=== PATIENT | male | born 1955 | race Caucasian/White ===

== ENCOUNTER 2022-02-08 19:35 | Emergency (ER) | payer MEDICARE, SELFPAY ==
[2022-02-08] VITALS (19 sets, daily range): BP systolic 161–177; BP diastolic 88–112; PULSE 76–116; RESP 15–32; TEMP 37.6; O2SAT 91–98
--- NOTE | ~2022-02-08 | XR_ITS ---
EXAMINATION: XR chest 2V Exam Date/Time: 02/08/2022 20:05 CDT HISTORY: AMS Comparison: None available. RESULT: Lines, tubes, and devices: None. Lungs and pleura: Clear. Cardiomediastinal silhouette: Mild aortic ectasia. Calcified hilar lymph nodes. Other: No acute osseous or upper abdominal finding. IMPRESSION: No acute cardiopulmonary process. Reviewed, dictated and finalized at location [facility].
--- NOTE | 2022-02-08 20:02 | ED.GENADULT ---
HPI - General Adult General Chief complaint: Altered Mental Status Stated complaint: altered LOC Time Seen by Provider: 02/08/22 19:41 History of Present Illness HPI narrative: Patient is a 67-year-old female who presents ER with fatigue. Worsening over the last day. Intermittent confusion when talking to daughter on the phone. Patient's called daughter to report that patient was sleeping more than typical. Patient oriented x3. Denies runny nose or sore throat or productive cough. Denies fevers chills or sweats. No known sick contacts. No urinary frequency urgency or dysuria. No aggravating or alleviating factors. Patient has not been taking home meds. Related Data Allergies Allergy/AdvReac Type Severity Reaction Status Date / Time No Known Allergies Allergy Verified 02/08/22 19:55 Review of Systems Review of Systems: All systems reviewed & are unremarkable except as noted in HPI and below Constitutional: Constitutional: Denies chills, Reports fatigue and Denies fever(s) ENT: Denies nasal congestion and Denies sore throat Cardiovascular: Cardiovascular: Denies chest pain, Denies rapid heart rate and Denies radiating jaw, neck or arm pain Respiratory: Respiratory: Denies cough and Denies dyspnea Gastrointestinal: Gastrointestinal: Denies abdominal pain, Denies nausea and Denies vomiting Genitourinary: Genitourinary: Denies dysuria, Denies testicular pain and Denies urinary frequency Neurologic: Denies syncope and Denies headache(s) PMFSH Past Medical History Medical History (Updated 02/08/22 @ 22:30 by Nik Mckeon MD) Diabetes Hypertension Surgical History Surgical History (Updated 02/08/22 @ 22:30 by Nik Mckeon MD) No pertinent past surgical history Social History Social History (Updated 02/08/22 @ 22:30 by Nik Mckeon MD) Smoking status: Never smoker Exam Narrative: GENERAL: Fatigued-appearing, well-nourished, and in no acute distress. HEAD: Normocephalic, atraumatic. EYES: PERRL and EOMI. ENT: Mucous membranes moist. CHEST: Clear to auscultation. No respiratory distress. HEART: Tachycardic and regular. Normal peripheral pulses. ABDOMEN: Soft, nontender, nondistended. EXTREMITIES: Normal range of motion. No edema. SKIN: Warm, dry, no rash. NEURO: Alert and oriented x3. PSYCH: Normal mood and affect. Course Course Emergency Course: Patient feels improved with IV fluids and is more awake per patient and family. We will give patient some IV antibiotics and discharged home after discussing options of home versus admission with patient and family. Patient is ambulatory and oriented x3 and should be able to be trialed with outpatient treatment. Discussed return precautions. Vital Signs Vital signs: Vital Signs Temperature 99.6 F 02/08/22 19:37 Pulse Rate 116 H 02/08/22 19:37 Respiratory Rate 18 02/08/22 19:37 Pulse Oximetry 94 02/08/22 19:37 Oxygen Delivery Room Air 02/08/22 19:37 Temperature 99.6 F 02/08/22 19:37 Pulse Rate 98 02/08/22 22:01 Respiratory Rate 21 H 02/08/22 22:01 Blood Pressure 169/97 H 02/08/22 22:01 Pulse Oximetry 96 02/08/22 22:01 Oxygen Delivery Room Air 02/08/22 19:37 Medical Decision Making Vital Signs Vital Signs: Vital Signs Temperature 99.6 F 02/08/22 19:37 Pulse Rate 116 H 02/08/22 19:37 Respiratory Rate 18 02/08/22 19:37 Pulse Oximetry 94 02/08/22 19:37 Oxygen Delivery Room Air 02/08/22 19:37 Temperature 99.6 F 02/08/22 19:37 Pulse Rate 98 02/08/22 22:01 Respiratory Rate 21 H 02/08/22 22:01 Blood Pressure 169/97 H 02/08/22 22:01 Pulse Oximetry 96 02/08/22 22:01 Oxygen Delivery Room Air 02/08/22 19:37 Lab Data Result diagrams: 02/08/22 20:04 02/08/22 20:04 Labs: Lab Results 02/08/22 02/08/22 02/08/22 Range/Units 20:04 20:04 20:04 WBC 3.7 L (4.5-10.0) K/mm3 RBC 4.67 (4.6-6.20) M/mm3
[2022-02-08 20:12] LABS: Basophils Percent Auto 0.3 % (0.2-1.2); Eosinophils Percent Auto 0.3 % (0-4.4); Hematocrit 38.2 % (42.0-52.0); Hemoglobin 12.9 g/dL (14.0-18.0); Immature Granulocyte Absolute 0.01 K/mm3 (0.00-0.031); Immature Granulocyte Percent A 0.3 % (0-0.5); Lymphocytes Absolute Auto 0.53 K/mm3 (0.9-3.2); Lymphocytes Percent Auto 14.2 % (18.3-44.2); Mean Corpuscular HGB Conc 33.8 g/dl (32-36); Mean Corpuscular Hemoglobin 27.6 pg (26-34); Mean Corpuscular Volume 81.8 fl (80-100); Mean Platelet Volume 9.6 fl (7.4-10.4); Monocytes Absolute Auto 0.3 K/mm3 (0.1-0.6); Monocytes Percent Auto 8.9 % (2.6-8.5); Neutrophils Absolute Auto 2.8 K/mm3 (1.3-6.7); Platelet Count Result 120 k/mm3 (150-375); Red Blood Count 4.67 M/mm3 (4.6-6.20); Red Cell Distribution Width 14.4 % (11.5-14.5); White Blood Count 3.7 K/mm3 (4.5-10.0)
[2022-02-08] MEDS: SODIUM CHLORIDE 0.9% IV 1,000 ML 999 ML IV CONT (20:19)
[2022-02-08 20:22] LABS: Alanine Aminotransferase 19 U/L (6-50); Albumin Level 4.3 g/dL (3.5-5.1); Alkaline Phosphatase 74 U/L (38-126); Anion Gap 12 mmol/L (8-16); Aspartate Amino Transferase 20 U/L (17-59); Bilirubin,Total 0.9 mg/dL (0.2-1.3); Blood Urea Nitrogen 11 mg/dL (9-20); Calcium 9.5 mg/dL (8.4-10.2); Carbon Dioxide 26 mmol/L (22-30); Chloride 97 mmol/L (98-107); Estimated Glomerular Filt Rate > 60; Glucose 177 mg/dL (65-110); Lactic Acid Reflex 1.4 mmol/L (0.7-2.0); Potassium 3.7 mmol/L (3.4-5.0); Sodium 135 mmol/L (137-145)
[2022-02-08 20:37] LABS: Appearance Urine Clear (Clear); Bilirubin Urine Negative (Negative); Blood Urine 1+ (Negative); Color Urine Yellow (Yellow); Glucose Urine UA Negative (Negative); Ketones Urine Negative (Negative); Leukocyte Esterase Ur 1+ LEU/UL (Negative); Nitrate Urine Positive (Negative); Protein Urine 2+ mg/dL (Negative); Specific Grav Ur 1.025 (1.001-1.035)
[2022-02-08] MEDS: Please add drug allergy info to patient profile. 1 EACH XX (20:40)
[2022-02-08 20:45] LABS: Bacteria Urine 3+ /hpf; Mucus Urine Rare /lpf; Squamous Epithelial Cell Urine Few /hpf (Few); WBC Urine 21-30 /hpf
[2022-02-08 20:48] LABS: Add Urine Microscopic? YES
[2022-02-08 21:07] LABS: SARS-CoV-2 RNA PCR Negative
== END 2022-02-08 23:25 | disposition home or self-care (01) ==
PROVIDERS: Emergency Provider Emergency Medicine
DX: N39.0 Urinary tract infection, site not specified (principal); E11.9 Type 2 diabetes mellitus without complications; I10 Essential (primary) hypertension; Z20.822 Contact with and (suspected) exposure to COVID-19
CPT/HCPCS: 36415; 71046; 80053; 81001; 83605; 85025; 87077; 87086; 87186; 96361; 96365; 99284; C9803; J0696; J7030; U0003; U0005

== ENCOUNTER 2022-11-24 16:20 | Inpatient (IN) | payer MEDICARE, SELFPAY ==
[2022-11-24] VITALS (8 sets, daily range): BP systolic 94–108; BP diastolic 52–68; PULSE 78–120; RESP 17–25; TEMP 36.4–36.9; O2SAT 93–99; BMI 27.1
--- NOTE | ~2022-11-24 | US_ITS ---
US abdomen limited DATE: 11/25/2022 07:54 INDICATION: Abnormal liver function tests TECHNIQUE: Real-time imaging and Doppler analysis of liver, pancreas, gallbladder areas COMPARISON: None FINDINGS: No hepatic or pancreatic space-occupying mass lesion is detected. Normal hepatopedal portal venous flow direction. There are dependent filling defects of the gallbladder with some shadowing, consistent with cholelith iasis. There is gallbladder wall thickening, measuring approximately 3.5 mm thickness. Negative sonog raphic Nance's sign. The common bile duct measures approximately 4 mm, within normal limits. IMPRESSION: Cholelithiasis Thickening of the gallbladder wall, which may be due to acute or chronic cholecystitis Reviewed, dictated and finalized at [facility]. Reviewed, dictated and finalized at location A. IMPRESSION: Cholelithiasis Thickening of the gallbladder wall, which may be due to acute or chronic cholec ystitis
--- NOTE | ~2022-11-24 | CT_ITS ---
EXAMINATION: CT brain wo con DATE: 11/24/2022 18:25 INDICATION: AMS . TECHNIQUE: Computed tomography (CT) of the head was performed without intravenous contrast. The mA wa s adjusted according to patient size. Iterative reconstruction technique was employed. The dose-lengt h product was 605.33 mGy-cm. COMPARISON: None. FINDINGS: No acute intracranial hemorrhage or extra-axial fluid collection. No hydrocephalus, mass, or herniation. 11 mm hypodensity in the left external capsule, No acute large vessel ischemic infarct. Unremarkable dural venous sinus attenuation. No acute osseous abnormality. The aerated spaces are clear. Mild atrophy and chronic white matter change. Atherosclerotic intracranial calcification. Old left ba teresita ganglia lacunar infarct. Old focal right frontal lobe periventricular infarct. IMPRESSION: 11 mm circumscribed hypodensity in the left external capsule, suspicious for a focal acute or subacut e infarct. Consider MR of the brain for further evaluation. Reviewed, dictated and finalized at location [facility]. IMPRESSION: 11 mm circumscribed hypodensity in the left external capsule, suspicious for a focal acute or subacute infarct. Consider MR of the brain for further evaluatio n.
--- NOTE | ~2022-11-24 | MR_ITS ---
MRI of the brain Clinical History: Abnormal head CT Technique: Axial and sagittal T1-weighted images were acquired. These were followed by axial T2-weigh heaven, diffusion weighted, gradient, and FLAIR images. COMPARISON: Head CT dated 11/24/2022 Findings: There is no acute infarct, intracranial hemorrhage or mass lesion. There are moderate chron ic microvascular ischemic changes in the periventricular white matter bilaterally. Ventricles and subarachnoid spaces are minimally dilated. Orbits are unremarkable. There is bilateral maxillary sinus disease. Remaining paranasal sinuses and mastoid air cells are clear. Major intracra nial flow voids are intact. Sagittal midline structures are intact. IMPRESSION: No acute infarct, intracranial hemorrhage, or mass lesion. Moderate chronic microvascular ischemic changes. Bilateral maxillary sinus disease. Reviewed, dictated and finalized at location .
--- NOTE | ~2022-11-24 | XR_ITS ---
EXAMINATION: XR chest 2V Exam Date/Time: 11/24/2022 18:00 CDT HISTORY: AMS, fever Comparison: 02/08/2022. RESULT: Lines, tubes, and devices: None. Lungs and pleura: Clear. Cardiomediastinal silhouette: Stable. Other: No acute osseous or upper abdominal finding. IMPRESSION: No acute cardiopulmonary process. Reviewed, dictated and finalized at location K.
--- NOTE | 2022-11-24 17:27 | ECG_ITS ---
Measurements Intervals [place] Rate: 108 P: 5 MT: 165 QRS: -47 QRSD: 156 T: 87 QT: 379 QTc: 508 Interpretive Statements SINUS TACHYCARDIA MARKED LEFT AXIS DEVIATION [QRS AXIS < -30] LEFT BUNDLE BRANCH BLOCK [120+ ms QRS DURATION, 80+ ms Q/S IN V1/V2, 85+ ms R IN I/aVL/V5/V6] ABNORMAL ECG NO PREVIOUS ECG AVAILABLE FOR COMPARISON Electronically Signed On 11-25-2022 9:13:49 CDT by [place] M.D.
[2022-11-24 18:05] LABS: Glucose Point of Care 147 mg/dl (65-105)
[2022-11-24 18:41] LABS: Basophils Percent Auto 0.6 % (0.2-1.2); Eosinophils Percent Auto 0.5 % (0-4.4); Hematocrit 39.2 % (42.0-52.0); Hemoglobin 12.8 g/dL (14.0-18.0); Immature Granulocyte Absolute 0.01 K/mm3 (0.00-0.031); Immature Granulocyte Percent A 0.2 % (0-0.5); Immature Platelet Fraction Pct 3.7 % (0.9-11.2); Lymphocytes Absolute Auto 0.45 K/mm3 (0.9-3.2); Lymphocytes Percent Auto 6.9 % (18.3-44.2); Mean Corpuscular HGB Conc 32.7 g/dl (32-36); Mean Corpuscular Volume 85.8 fl (80-100); Mean Platelet Volume 10.3 fl (7.4-10.4); Monocytes Absolute Auto 0.5 K/mm3 (0.1-0.6); Monocytes Percent Auto 7.2 % (2.6-8.5); Neutrophils Absolute Auto 5.5 K/mm3 (1.3-6.7); Neutrophils Percent Auto 84.6 % (45.5-73.1); Platelet Count Result 144 k/mm3 (150-375); Red Blood Count 4.57 M/mm3 (4.6-6.20); Red Cell Distribution Width 14.9 % (11.5-14.5); White Blood Count 6.5 K/mm3 (4.5-10.0)
--- NOTE | 2022-11-24 18:45 | ED.AMS ---
HPI - Altered Mental Status General Chief Complaint: Altered Mental Status Stated Complaint: my family says i'm not thinking clearly Time Seen by Provider: 11/24/22 17:27 History of Present Illness HPI narrative: Patient had a slight cough yesterday, night, and today seems more confused, noticed she had a small fever and gave her a Tylenol. She continues to not be making much sense. Denies any pain anywhere, or any symptoms. She has had similar issues like this before when she was found to have a UTI. Related Data Allergies Allergy/AdvReac Type Severity Reaction Status Date / Time No Known Allergies Allergy Verified 11/24/22 17:33 Review of Systems Review of Systems: CONST: Fever HEENT: No sore throat C/V: No chest pain RESP: Slight cough GI: No abdominal pain, nausea or vomiting : No dysuria. M/S: No joint pain. SKIN: No rash. NEURO: [No headache or focal numbness or weakness] PSYCH: Slight confusion PMFSH Past Medical History Medical History Diabetes Hypertension Surgical History Surgical History No pertinent past surgical history Social History Social History Smoking status: Never smoker Exam Narrative: EXAMINATION OF ORGAN SYSTEMS/BODY AREAS: Constitutional: Vital signs per nursing GENERAL:[No acute distress, non-toxic appearing.] HEAD: Normal with no signs of head trauma. EYES: EOMI, conjunctiva normal ENT: Hearing grossly intact LUNGS: Nonlabored breathing. HEART: [Regular rate and rhythm] ABD: [Soft], [nontender to palpation] EXT: Normal range of motion SKIN: [No rashes or lesions.] NEURO: [Alert, slightly slow of speech. No gross focal sensory or strength deficits.] PSYCH: Normal affect Course Vital Signs Vital signs: Vital Signs Temperature 98.3 F 11/24/22 16:23 Pulse Rate 120 H 11/24/22 16:23 Respiratory Rate 20 11/24/22 16:23 Blood Pressure 106/52 L 11/24/22 16:23 Pulse Oximetry 95 11/24/22 16:23 Oxygen Delivery Room Air 11/24/22 16:23 Temperature 98.3 F 11/24/22 16:23 Pulse Rate 109 H 11/24/22 17:32 Respiratory Rate 25 H 11/24/22 17:31 Blood Pressure 103/54 L 11/24/22 17:31 Pulse Oximetry 93 11/24/22 17:31 Oxygen Delivery Room Air 11/24/22 16:23 MDM - Altered Mental Status MDM Narrative Medical decision making narrative: 67 year-old patient presenting with altered mental status, as of this happen she had a UTI. also noticed she had a fever, he thinks she had a slight cough yesterday also.. Urinalysis is obtained and positive for signs of infection. Urine culture sent. Patient started on ceftriaxone, I did not start the 30 cc/kg of fluids for sepsis due to her history of CHF, but I will carefully given IV fluids to ensure she does not become fluid overloaded, I do feel she is still overall volume depleted given her chest x-ray is clear and her blood pressures borderline with mild tachycardia. On reevaluation, vital signs have somewhat stabilized, she is resting comfortably, I have explained the plan and findings to her that I would prefer her to be admitted until she is better, they are agreeable with this plan. Case discussed with hospitalist who accepts the patient. total crit care time 32 min Lab Data 11/24/22 18:04 11/24/22 18:03 Labs: Lab Results 11/24/22 11/24/22 11/24/22 Range/Units 18:02 18:03 18:04 WBC 6.5 (4.5-10.0) K/mm3 RBC 4.57 L (4.6-6.20) M/mm3 Hgb 12.8 L (14.0-18.0) g/dL Hct 39.2 L (42.0-52.0) % MCV 85.8 (80-100) fl MCH 28.0 (26-34) pg MCHC 32.7 (32-36) g/dl RDW 14.9 H (11.5-14.5) % Plt Count 144 L (150-375) k/mm3 MPV 10.3 (7.4-10.4) fl Immature Gran % (Auto) 0.2 (0-0.5) % Neut % (Auto) 84.6 H (45.5-73.1) % Lymph % (Auto)
[2022-11-24 18:50] LABS: Alanine Aminotransferase 466 U/L (6-50); Albumin Level 4.3 g/dL (3.5-5.1); Alkaline Phosphatase 244 U/L (38-126); Anion Gap 7 mmol/L (8-16); Aspartate Amino Transferase 521 U/L (17-59); Blood Urea Nitrogen 25 mg/dL (9-20); Carbon Dioxide 31 mmol/L (22-30); Chloride 100 mmol/L (98-107); Estimated CRCL calculation 67 ml/min; Estimated Glomerular Filt Rate > 60; Glucose 143 mg/dL (65-110); Potassium 3.9 mmol/L (3.4-5.0); Sodium 138 mmol/L (137-145)
[2022-11-24 18:52] LABS: Acetaminophen < 10 ug/mL (10-30); Ethanol < 10 mg/dL (<10); Salicylate < 1.0 mg/dL (2-20)
[2022-11-24 19:09] LABS: Troponin I 0.016 ng/mL (0.000-0.034)
[2022-11-24 19:12] LABS: Appearance Urine Cloudy (Clear); Bacteria Urine 4+ /hpf; Bilirubin Urine 2+ (Negative); Blood Urine Negative (Negative); Color Urine Dark Yellow (Yellow); Glucose Urine UA 3+ mg/dL (Negative); Hyaline Casts Urine Present /lpf; Ketones Urine 1+ mg/dL (Negative); Leukocyte Esterase Ur Trace LEU/UL (Negative); Nitrate Urine Positive (Negative); Non Pathogenic Casts 0-2; Protein Urine Trace mg/dL (Negative); Squamous Epithelial Cell Urine Few /hpf (Few); WBC Urine 21-50 /hpf; pH Urine 5.5 (5.0-9.0)
[2022-11-24 19:13] LABS: Add Urine Microscopic? YES
[2022-11-24] MEDS: LACTATED RINGERS 500 ML 999 ML IV CONT (19:38)
--- NOTE | 2022-11-24 19:47 | PM.IMHP ---
H&P: HPI History of Present Illness Date/Time: 11/24/22 19:47 Chief Complaint: Altered mental status Narrative: This is a 67-year-old female with past medical history significant for type diabetes mellitus, congestive heart failure, thyroid mass. Patient was brought to the emergency room due to altered mental status, confusion, lethargy, poor per orally intake, chills, rigors, for the last 2 days or so. Most of the history has been obtained from who is at bedside. Preliminary workup was significant for urinalysis with numerous WBCs present. EXAMINATION:? XR chest 2V Exam Date/Time:? 11/24/2022 18:00 CDT HISTORY: AMS, fever ? Comparison:? 02/08/2022. RESULT: Lines, tubes, and devices:? None. Lungs and pleura:? Clear. Cardiomediastinal silhouette:? Stable. Other:? No acute osseous or upper abdominal finding. ? IMPRESSION: No acute cardiopulmonary process. EXAMINATION: CT brain wo con DATE: 11/24/2022 18:25 INDICATION: AMS . TECHNIQUE: Computed tomography (CT) of the head was performed without intravenous contrast. The mA was adjusted according to patient size. Iterative reconstruction technique was employed. The dose-length product was 605.33 mGy-cm. COMPARISON: None. FINDINGS: No acute intracranial hemorrhage or extra-axial fluid collection. No hydrocephalus, mass, or herniation. 11 mm hypodensity in the left external capsule, No acute large vessel ischemic infarct. Unremarkable dural venous sinus attenuation. No acute osseous abnormality. The? aerated spaces are clear. Mild atrophy and chronic white matter change. Atherosclerotic intracranial calcification. Old left basal ganglia lacunar infarct. Old focal right frontal lobe periventricular infarct. IMPRESSION:? 11 mm circumscribed hypodensity in the left external capsule, suspicious for a focal acute or subacute infarct. Consider MR of the brain for further evaluation. [facility] Past Medical History Medical History Diabetes Hypertension Surgical History Surgical History No pertinent past surgical history Social History Social History Smoking status: Never smoker Alcohol intake: never Substance use: never Substance use type: does not use Lack of Transportation: No Lack of Food: Never True Current Housing: I Have Housing Concerned About Future Housing: No Difficulty Paying Gas/Electric Bills: No Difficulty Paying for Meds: No Currently Unemployed: No Education: Bachelor's Degree Difficulty w/ Childcare or Family Care: No Spiritual care concerns: No Meds Home Medications and Allergies Home Medications Medication Instructions Recorded Confirmed Type empagliflozin 10 mg tablet 10 mg PO DAILY 11/24/22 11/24/22 History (Jardiance) furosemide 20 mg tablet 20 mg PO DAILY 11/24/22 11/24/22 History metoprolol succinate 25 mg 25 mg PO DAILY 11/24/22 11/24/22 History tablet,extended release 24 hr sacubitril 24 mg-valsartan 26 mg 1 tablet PO BID 11/24/22 11/24/22 History tablet (Entresto) spironolactone 50 mg tablet 50 mg PO DAILY 11/24/22 11/24/22 History Allergies Allergy/AdvReac Type Severity Reaction Status Date / Time No Known Allergies Allergy Verified 11/24/22 22:09 Vital Signs Vital Signs - 24 hr 11/24/22 16:23 11/24/22 17:31 11/24/22 17:32 Temperature 98.3 F Pulse Rate 120 H 113 H 109 H Respiratory Rate 20 25 H Blood Pressure 106/52 L 103/54 L Pulse Oximetry 95 93 Oxygen Delivery Room Air 11/24/22 19:22 11/24/22 19:23 Temperature 97.8 F Pulse Rate 102 H 103 H Respiratory Rate 22 H Blood Pressure 94/58 L Pulse Oximetry 94 Oxygen Delivery H&P: Results Labs Labs: Short CBC 11/24/22 Range/Units 18:04 WBC 6.5 (4.5-10.0) K/mm3 Hgb 12.8 L (14.0-18.0) g/dL Hct 39.2 L (42
[2022-11-24] MEDS: PIPERACILLN/TAZ 3.375GM/NS50ML 3.375 GM/50 ML BAG IVPB (20:31)
--- NOTE | 2022-11-24 20:43 | PC.NURSE ---
Called [facility] for report, per their admin secretary the nurse will call back.
--- NOTE | 2022-11-24 21:13 | PC.NURSE ---
Patient received 1,000mL of LR. Per Dr. Allen d/c the rest of the LR ordered.
--- NOTE | 2022-11-24 21:40 | ADMGEN ---
Addendum entered by Talia Juarze RN 11/24/22 21:42: PT ARRIVED APPROXIMATELY @2130 Original Note: This patient, Miryam Pablo, was admitted to 2 Medical Room 256-01. Patient/family oriented to hospital policies and general routines including ID bracelet, bed and alarms, visiting hours, pain management, procedures, bathroom and other care routines, personal items, smoking policy, room service/diet, and visiting hours. Information on how to activate the Rapid Response Team has been discussed. Patient/Family are encouraged to report perceived risks to care and to ask questions if they do not understand what they are told or what they should do.
[2022-11-25] MEDS: PIPERACILLN/TAZ 3.375GM/NS50ML 3.375 GM/50 ML BAG IVPB ×2 (04:06→08:26)
[2022-11-25 04:21] VITALS: BP 112/53; PULSE 88; RESP 18; TEMP 36.6; O2SAT 93
[2022-11-25 07:58] VITALS: RESP 18; O2SAT 94
[2022-11-25 08:22] LABS: Glucose Point of Care 98 mg/dl (65-105)
[2022-11-25] MEDS: ENOXAPARIN 40 MG/0.4 ML SYRINGE SUB-Q (08:26)
--- NOTE | 2022-11-25 11:06 | PM.IMPN ---
Progress Note: A&P Assessment and Plan (1) Altered mental status: Code(s): R41.82 - Altered mental status, unspecified Status: Acute Assessment and Plan: Likely secondary to sepsis CT of the head reviewed (2) Sepsis: Code(s): A41.9 - Sepsis, unspecified organism Status: Acute Assessment and Plan: Source is urine Encephalopathy, altered mental status, delirium. Abnormal liver enzymes (3) UTI (urinary tract infection): Code(s): N39.0 - Urinary tract infection, site not specified Status: Acute Assessment and Plan: Currently on Zosyn Cultures in progress (4) Thyroid mass: Code(s): E07.9 - Disorder of thyroid, unspecified Status: Acute Assessment and Plan: Being followed up in the outpatient setting for this (5) Abnormal LFTs: Code(s): R79.89 - Other specified abnormal findings of blood chemistry Status: Acute Assessment and Plan: Likely secondary to sepsis Right upper quadrant ultrasound in a.m. Continue to trend Continue to monitor Plan This a 67-year-old presented with effusion mild fever got lost. Similar issues in past related to UTI. Vital was stable. UA positive. Ceftriaxone given in the ER. Was noted to have mild thrombocytopenia and elevated LFTs AST 521 ALT 466 an Julio C phosphorus 244 bilirubin elevated at 4. Troponin negative electrolytes okay salicylate it alcohol and acetaminophen is negative. CT head with 11 mm circumscribed hypodensity in the left external capsule suspicious for a focal acute or subacute infarct. Chest x-ray with no acute cardiopulmonary process. Abdominal ultrasound showed cholelithiasis along thickening of the gallbladder wall which may be due to acute or chronic cholecystitis. She does not have any pain or tenderness or any GI symptoms. Will continue to trend LFTs. Will have General surgery evaluate. Check lipase level. May need further evaluation with HIDA scan. She is turning out to be bacteremic with Gram-negative bacilli. Possible source gallbladder versus UTI. Patient was switched to Zosyn. She has a history of ESBL E coli. Will change antibiotics to meropenem. Will start clear liquid diet and advanced as tolerated for now. DVT prophylaxis Lovenox. History of congestive heart failure well compensated on Entresto metoprolol Lasix and spironolactone. Also on empagliflozin. Cold empagliflozin and diuretics Subjective Date/time seen: 11/25/22 11:06 Interval history: Feeling better today. Denies any abdominal pain nausea vomiting. Was lost yesterday on the way back. Has been feeling tired over past few days. Antibiotic with Zosyn Review of Systems Review of Systems: All systems reviewed & are unremarkable except as noted in HPI and below Exam Narrative: GENERAL: The patient is well developed, not in acute distress HEENT: Nonicteric sclerae, PERRLA, EOMI. Oropharynx clear. Moist mucous membranes. Conjunctivae appear well perfused. CHEST: Chest wall is nontender. HEART: Regular rate and rhythm without murmur, rubs, or gallops LUNGS: Clear to auscultation bilaterally. no respiratory distress ABDOMEN: Soft, positive bowel sounds, non-tender, no organomegaly. SKIN: No rash, no excessive bruising, petechiae, or purpura. NEUROLOGIC: Cranial nerves II-XII intact, alert and oriented x 3, no gross motor deficits EXTREMITIES: no edema, cyanosis or clubbing Objective Data Vital Signs Vital Signs: Vital Signs - 24 hr 11/24/22 16:23 11/24/22 17:31 11/24/22 17:32 Temperature 98.3 F Pulse Rate 120 H 113 H 109 H Respiratory Rate 20 25 H Blood Pressure 106/52 L 103/54 L Pulse Oximetry 95 93 Oxygen Delivery Room Air 11/24/22 19:22 11/24/22 19:23 11/24/22 21:08 Temperature 97.8 F 97.6 F Pulse Rate 102 H 103 H 78 Respiratory Rate 22 H 17 Blood Pressure 94/58 L 106/68 Pulse Oximetry 94 99 Oxygen Delivery 11/24/22 21:43 11/24/22 22:00 11/25/22 04:21
[2022-11-25 11:41] LABS: Glucose Point of Care 75 mg/dl (65-105)
[2022-11-25 13:15] LABS: Basophils Percent Auto 0.3 % (0.2-1.2); Hematocrit 35.8 % (42.0-52.0); Hemoglobin 11.4 g/dL (14.0-18.0); Immature Granulocyte Absolute 0.01 K/mm3 (0.00-0.031); Immature Granulocyte Percent A 0.3 % (0-0.5); Immature Platelet Fraction Pct 4.2 % (0.9-11.2); Lymphocytes Absolute Auto 0.29 K/mm3 (0.9-3.2); Lymphocytes Percent Auto 10.1 % (18.3-44.2); Mean Corpuscular HGB Conc 31.8 g/dl (32-36); Mean Corpuscular Hemoglobin 28.3 pg (26-34); Mean Corpuscular Volume 88.8 fl (80-100); Mean Platelet Volume 10.4 fl (7.4-10.4); Monocytes Absolute Auto 0.3 K/mm3 (0.1-0.6); Monocytes Percent Auto 8.7 % (2.6-8.5); Neutrophils Absolute Auto 2.3 K/mm3 (1.3-6.7); Neutrophils Percent Auto 79.6 % (45.5-73.1); Platelet Count Result 107 k/mm3 (150-375); Red Blood Count 4.03 M/mm3 (4.6-6.20); Red Cell Distribution Width 14.9 % (11.5-14.5); White Blood Count 2.9 K/mm3 (4.5-10.0)
[2022-11-25 13:22] LABS: INR 1.2; Prothrombin Time 15.4 Seconds (11.1-14.7)
[2022-11-25] MEDS: MEROPENEM 1 GM in SODIUM CHLORIDE 0.9% IV 100 ML 200 ML IVPB ×2 (13:34→21:02)
[2022-11-25 13:35] LABS: Lipase 436 U/L (23-300)
[2022-11-25 13:39] LABS: Alanine Aminotransferase 275 U/L (6-50); Albumin Level 3.6 g/dL (3.5-5.1); Alkaline Phosphatase 181 U/L (38-126); Anion Gap 3 mmol/L (8-16); Aspartate Amino Transferase 165 U/L (17-59); Bilirubin,Total 2.9 mg/dL (0.2-1.3); Blood Urea Nitrogen 21 mg/dL (9-20); Calcium 8.7 mg/dL (8.4-10.2); Carbon Dioxide 31 mmol/L (22-30); Chloride 103 mmol/L (98-107); Estimated CRCL calculation 66 ml/min; Estimated Glomerular Filt Rate > 60; Glucose 96 mg/dL (65-110); Sodium 137 mmol/L (137-145)
[2022-11-25 14:06] VITALS: BP 108/53; PULSE 82; RESP 18; TEMP 36.4; O2SAT 98
[2022-11-25 16:47] LABS: Glucose Point of Care 100 mg/dl (65-105)
--- NOTE | 2022-11-25 17:20 | PM.CNGS ---
Assessment and Plan Assessment and plan (1) Cholecystitis with cholelithiasis: Code(s): K80.10 - Calculus of gallbladder with chronic cholecystitis without obstruction Status: Acute Assessment and Plan: exam completely benign at this point, cont treatment c abx, d/w pt and family and she will likely need interval cholecystectomy as outpt (2) UTI (urinary tract infection): Code(s): N39.0 - Urinary tract infection, site not specified Status: Acute Assessment and Plan: cont current abx course, pt improving to baseline (3) Altered mental status: Code(s): R41.82 - Altered mental status, unspecified Status: Acute Assessment and Plan: resolved History of Present Illness Consult details Consult date: 11/25/22 Reason for consult: gallstones Requesting physician: Kim Louis MD Narrative: The patient is a 67-year-old female presenting to the emergency department with altered mental status. Workup in the emergency department was consistent with likely urosepsis. The patient was also noted to have elevated liver enzymes and bilirubin. Subsequent imaging is significant for acute versus chronic cholecystitis, cholelithiasis. Of note, the patient denies any abdominal pain. She reports that she has had some mild reflux in the past, however denies any symptoms of gallbladder disease. Since admission, the patient has dramatically improved. Review of Systems Constitutional: Constitutional: Reports as per HPI, Denies anorexia, Denies chills, Denies fatigue, Denies fever(s), Denies increased appetite, Reports lethargy, Reports malaise, Reports poor appetite, Reports weakness, Denies weight gain and Denies weight loss Eyes: Eyes: Reports no additional eye complaints ENT: Reports system reviewed and no additional complaints, except as documented Cardiovascular: Cardiovascular: Reports no additional cardiovascular complaints Respiratory: Respiratory: Reports no additional respiratory complaints Gastrointestinal: Gastrointestinal: Reports no additional gastrointestinal complaints, Denies abdominal pain, Denies bloating, Denies nausea and Denies vomiting Genitourinary: Genitourinary: Reports no additional male genitourinary complaints Musculoskeletal: Musculoskeletal: Reports no additional musculoskeletal complaints Integumentary/Breasts: Skin/Breast: Reports system reviewed and no additional complaints, except as docu Neurologic: Reports system reviewed and no additional complaints, except as documented Psychiatric: Psychiatric: Reports no additional psychiatric complaints Endocrine: Endocrine: Reports no additional endocrine complaints Hematologic/Lymphatic: Hematologic/Lymphatic: Reports no additional hematologic/lymphatic complaints Allergic/Immunologic: Allergic/Immunologic: Reports no additional allergic/immunologic complaints [facility] Past Medical History Medical History Diabetes Hypertension Surgical History Surgical History No pertinent past surgical history Social History Social History Smoking status: Never smoker Alcohol intake: never Substance use: never Substance use type: does not use Lack of Transportation: No Lack of Food: Never True Current Housing: I Have Housing Concerned About Future Housing: No Difficulty Paying Gas/Electric Bills: No Difficulty Paying for Meds: No Currently Unemployed: No Education: Bachelor's Degree Difficulty w/ Childcare or Family Care: No Spiritual care concerns: No Comments FH - denies any biliary dz Meds Home Medications and Allergies Home Medications Medication Instructions Recorded Confirmed Type empagliflozin 10 mg tablet 10 mg PO DAILY 11/24/22 11/24/22 History (Jardiance) furosemide 20 mg tablet 20 mg PO DAILY
[2022-11-25 19:47] VITALS: BP 123/62; PULSE 80; RESP 20; TEMP 36.6; O2SAT 98
[2022-11-25 21:39] LABS: Glucose Point of Care 102 mg/dl (65-105)
[2022-11-26 04:01] VITALS: BP 100/56; PULSE 68; RESP 18; TEMP 36.1; O2SAT 95
[2022-11-26] MEDS: MEROPENEM 1 GM in SODIUM CHLORIDE 0.9% IV 100 ML 200 ML IVPB ×3 (05:00→21:19)
[2022-11-26 05:05] LABS: Basophils Percent Auto 0.4 % (0.2-1.2); Eosinophils Absolute Auto 0.1 K/mm3 (0-0.3); Eosinophils Percent Auto 2.7 % (0-4.4); Hematocrit 33.2 % (42.0-52.0); Hemoglobin 10.7 g/dL (14.0-18.0); Immature Granulocyte Absolute 0.01 K/mm3 (0.00-0.031); Immature Granulocyte Percent A 0.4 % (0-0.5); Lymphocytes Absolute Auto 0.32 K/mm3 (0.9-3.2); Lymphocytes Percent Auto 14.2 % (18.3-44.2); Mean Corpuscular HGB Conc 32.2 g/dl (32-36); Mean Corpuscular Hemoglobin 28.2 pg (26-34); Mean Corpuscular Volume 87.4 fl (80-100); Mean Platelet Volume 9.7 fl (7.4-10.4); Monocytes Absolute Auto 0.3 K/mm3 (0.1-0.6); Monocytes Percent Auto 13.8 % (2.6-8.5); Neutrophils Absolute Auto 1.5 K/mm3 (1.3-6.7); Neutrophils Percent Auto 68.5 % (45.5-73.1); Platelet Count Result 103 k/mm3 (150-375); Red Cell Distribution Width 14.8 % (11.5-14.5); White Blood Count 2.3 K/mm3 (4.5-10.0)
[2022-11-26 05:16] LABS: Alanine Aminotransferase 189 U/L (6-50); Albumin Level 3.3 g/dL (3.5-5.1); Alkaline Phosphatase 137 U/L (38-126); Anion Gap 3 mmol/L (8-16); Aspartate Amino Transferase 83 U/L (17-59); Bilirubin,Total 1.5 mg/dL (0.2-1.3); Blood Urea Nitrogen 17 mg/dL (9-20); Calcium 8.2 mg/dL (8.4-10.2); Carbon Dioxide 31 mmol/L (22-30); Chloride 100 mmol/L (98-107); Estimated CRCL calculation 73 ml/min; Estimated Glomerular Filt Rate > 60; Glucose 96 mg/dL (65-110); Potassium 3.8 mmol/L (3.4-5.0); Sodium 134 mmol/L (137-145)
--- NOTE | 2022-11-26 07:45 | PM.IMPN ---
Progress Note: A&P Assessment and Plan (1) Altered mental status: Code(s): R41.82 - Altered mental status, unspecified Status: Acute (2) Sepsis: Code(s): A41.9 - Sepsis, unspecified organism Status: Acute (3) UTI (urinary tract infection): Code(s): N39.0 - Urinary tract infection, site not specified Status: Acute (4) Thyroid mass: Code(s): E07.9 - Disorder of thyroid, unspecified Status: Acute (5) Abnormal LFTs: Code(s): R79.89 - Other specified abnormal findings of blood chemistry Status: Acute Plan This a 67-year-old presented with effusion mild fever got lost. Similar issues in past related to UTI. Vital was stable. UA positive. Ceftriaxone given in the ER. Was noted to have mild thrombocytopenia and elevated LFTs AST 521 ALT 466 an Julio C phosphorus 244 bilirubin elevated at 4. Troponin negative electrolytes okay salicylate it alcohol and acetaminophen is negative. CT head with 11 mm circumscribed hypodensity in the left external capsule suspicious for a focal acute or subacute infarct. Chest x-ray with no acute cardiopulmonary process. Abdominal ultrasound showed cholelithiasis along thickening of the gallbladder wall which may be due to acute or chronic cholecystitis. She does not have any pain or tenderness or any GI symptoms. Will continue to trend LFTs. Will have General surgery evaluate. Check lipase level. May need further evaluation with HIDA scan. She is turning out to be bacteremic with Gram-negative bacilli. Possible source gallbladder versus UTI. Patient was switched to Zosyn. She has a history of ESBL E coli. Will change antibiotics to meropenem. Will start clear liquid diet and advanced as tolerated for now. DVT prophylaxis Lovenox. History of congestive heart failure well compensated on Entresto metoprolol Lasix and spironolactone. Also on empagliflozin. Hold empagliflozin and diuretics 11/26/2022:This a 67-year-old presented with effusion mild fever and got lost. Similar issues in past related to UTI. Vital was stable. UA positive. Ceftriaxone given in the ER. Was noted to have mild thrombocytopenia and elevated LFTs AST 521 ALT 466 an Julio C phosphorus 244 bilirubin elevated at 4. Troponin negative electrolytes okay salicylate it alcohol and acetaminophen is negative. CT head with 11 mm circumscribed hypodensity in the left external capsule suspicious for a focal acute or subacute infarct. Chest x-ray with no acute cardiopulmonary process. Abdominal ultrasound showed cholelithiasis along thickening of the gallbladder wall which may be due to acute or chronic cholecystitis. She does not have any pain or tenderness or any GI symptoms. Will continue to trend LFTs. General surgery evaluated. Light lipase level came back elevated as well. lFT continues to improve. She most likely have passed stone. She will need interval cholecystectomy. General surgery was consulted and appreciate their recommendations. She is noted to be bacteremic which is E coli. On meropenem due to prior history of ESBL E coli. Continue to follow sensitivity. Urine culture growing E coli as well. Most likely source is UTI. On diet which she is tolerating well. DVT prophylaxis Lovenox. History of congestive heart failure well compensated on Entresto metoprolol Lasix and spironolactone. Also on empagliflozin. Hold empagliflozin and diuretics. MRI was taken however the report is pending Subjective Date/time seen: 11/26/22 07:45 Interval history: Feeling better today. Was sweaty last night. Remained afebrile. No abdominal pain nausea vomiting. Discussed finding with her. Review of Systems Review of Systems: All systems reviewed & are unremarkable except as noted in HPI and below Exam Narrative: GENERAL: The patient is well developed, not in acute distress HEENT: Nonicteric sclerae, PERRLA, EOMI. Oropharynx clear. Moist mucous membranes. Conjunctiv
[2022-11-26 07:49] LABS: Glucose Point of Care 90 mg/dl (65-105)
[2022-11-26 08:44] LABS: Glucose Point of Care 101 mg/dl (65-105)
[2022-11-26] MEDS: polyethylene glycoL 3350 17 GM POWD.PACK PO (08:53)
[2022-11-26 10:16] VITALS: BP 110/63; PULSE 87; RESP 20; TEMP 36.6; O2SAT 97
--- NOTE | 2022-11-26 11:25 | PM.PNGS ---
Progress Note: A&P Assessment and Plan (1) Cholecystitis with cholelithiasis: Code(s): K80.10 - Calculus of gallbladder with chronic cholecystitis without obstruction Status: Acute Assessment and Plan: exam benign, home on low fat diet, will setup interval cholecystectomy as outpt Subjective Subjective Date/Time Seen: 11/26/22 11:25 Interval history: doing well, juan low fat diet, no pain Review of Systems Review of Systems: All systems reviewed & are unremarkable except as noted in HPI and below Exam Const: General: cooperative, comfortable and no acute distress Resp: Auscultation: clear to auscultation bilaterally Cardio: Rate: regular rate Rhythm: regular rhythm GI: Inspection: normal to inspection and non-distended GI Palp: No abdominal tenderness, Yes Soft to palpation, No Tenderness to palpation present (GI), No Guarding due to palpation present (GI) and No Rigid due to palpation Objective Data Vital Signs Vital Signs: Vital Signs - 24 hr 11/25/22 14:06 11/25/22 19:47 11/25/22 20:50 Temperature 36.4 C 36.6 C Pulse Rate 82 80 Respiratory Rate 18 20 Blood Pressure 108/53 L 123/62 Pulse Oximetry 98 98 Oxygen Delivery Room Air 11/26/22 04:01 11/26/22 10:16 11/26/22 08:50 Temperature 36.1 C L 36.6 C Pulse Rate 68 87 Respiratory Rate 18 20 Blood Pressure 100/56 L 110/63 Pulse Oximetry 95 97 Oxygen Delivery Room Air Intake/Output Intake/Output: Intake & Output 11/23/22 11/24/22 11/25/22 11/26/22 23:59 23:59 23:59 23:59 Intake Total 600 2580 1010 Output Total 1600 350 Balance 600 980 660 Meds/Results Medications: Active Medications Generic Name Dose Route Start Last Admin Trade Name Freq PRN Reason Stop Dose Admin Acetaminophen 1,000 mg 11/25/22 01:09 Acetaminophen 500 Mg Tablet PO Q6H PRN Mild Pain (1-3) or Fever Al Hydrox/Mg Hydrox/Simethicone 30 ml 11/25/22 01:09 Mag Hydrox/Al Hydrox/Simeth 30 Ml Udc PO Q6H PRN Indigestion Enoxaparin Sodium 40 mg 11/25/22 09:00 11/26/22 08:51 Enoxaparin 40 Mg/0.4 Ml Syringe SUB-Q Not Given DAILY JAMAR Meropenem 1 gm/ Sodium 100 mls @ 200 mls/hr 11/25/22 14:00 11/26/22 05:30 Chloride IVPB Infused Q8HR JAMAR Infusion Ondansetron HCl 4 mg 11/25/22 01:09 Ondansetron Inj 4 Mg/2 Ml Vial IV PUSH Q6H PRN Nausea And Vomiting Polyethylene Glycol 17 gm 11/25/22 01:09 11/26/22 08:53 Polyethylene Glycol 3350 17 Gm Powd.Pack PO 17 gm QAM PRN Administration Constipation Radiology Results: ITS Impressions Chest X-Ray 11/24/22 18:23 IMPRESSION: No acute cardiopulmonary process. Head CT 11/24/22 18:38 IMPRESSION: 11 mm circumscribed hypodensity in the left external capsule, suspicious for a focal acute or subacute infarct. Consider MR of the brain for further evaluation. Abdomen Ultrasound 11/25/22 09:45 IMPRESSION: Cholelithiasis Thickening of the gallbladder wall, which may be due to acute or chronic cholecystitis Labs Labs: Laboratory Results - last 24 hr 11/25/22 11/25/22 11/25/22 11:39 12:21 16:45 WBC 2.9 L RBC 4.03 L Hgb 11.4 L Hct 35.8 L MCV 88.8 MCH 28.3 MCHC 31.8 L RDW 14.9 H Plt Count 107 L MPV 10.4 Immature Gran % (Auto) 0.3 Neut % (Auto) 79.6 H Lymph % (Auto) 10.1 L [place] % (Auto) 8.7 H Eos % (Auto) 1.0 Baso % (Auto) 0.3 Lymph # (Auto) 0.29 L [place] # (Auto) 0.3 Eos # (Auto) 0.0 Baso # (Auto) 0.0 Abs Immat Gran (auto) 0.01 Absolute Neuts (auto) 2.3 Absolute Nucleated RBC 0.0 Nucleated RBC % 0.0 % Immature Plt Fraction 4.2 PT 15.4 H INR 1.2 Sodium 137 Potassium 4.0 Chloride 103 Carbon Dioxide 31 H Anion Gap 3 L BUN 21 H Creatinine 0.90 Estim Creat Clear Calc 66 Estimated GFR > 60 Glucose 96 POC Capillary Glucose 75 100 Calcium 8.7 Ma
[2022-11-26 11:50] LABS: Glucose Point of Care 209 mg/dl (65-105)
[2022-11-26 11:50] LABS: Glucose Point of Care 193 mg/dl (65-105)
[2022-11-26 12:36] LABS: Glucose Point of Care 145 mg/dl (65-105)
[2022-11-26 12:49] LABS: Hemoglobin A1C 6.6 % (<5.7)
[2022-11-26 14:30] VITALS: BP 110/57; PULSE 83; RESP 16; TEMP 36.7; O2SAT 99
[2022-11-26 17:01] LABS: Glucose Point of Care 86 mg/dl (65-105)
[2022-11-26 19:34] VITALS: BP 114/55; PULSE 73; RESP 17; TEMP 36.9; O2SAT 97
[2022-11-26 20:06] LABS: Glucose Point of Care 154 mg/dl (65-105)
[2022-11-27 05:04] VITALS: BP 117/66; PULSE 66; RESP 16; TEMP 36.4; O2SAT 98
[2022-11-27] MEDS: MEROPENEM 1 GM in SODIUM CHLORIDE 0.9% IV 100 ML 200 ML IVPB (05:09)
[2022-11-27 06:16] LABS: Basophils Percent Auto 0.6 % (0.2-1.2); Eosinophils Percent Auto 2.4 % (0-4.4); Hematocrit 35.9 % (42.0-52.0); Hemoglobin 11.6 g/dL (14.0-18.0); Lymphocytes Absolute Auto 0.45 K/mm3 (0.9-3.2); Lymphocytes Percent Auto 27.1 % (18.3-44.2); Mean Corpuscular HGB Conc 32.3 g/dl (32-36); Mean Corpuscular Hemoglobin 28.2 pg (26-34); Mean Corpuscular Volume 87.1 fl (80-100); Monocytes Absolute Auto 0.2 K/mm3 (0.1-0.6); Monocytes Percent Auto 14.5 % (2.6-8.5); Neutrophils Absolute Auto 0.9 K/mm3 (1.3-6.7); Neutrophils Percent Auto 55.4 % (45.5-73.1); Platelet Count Result 120 k/mm3 (150-375); Red Blood Count 4.12 M/mm3 (4.6-6.20); Red Cell Distribution Width 14.6 % (11.5-14.5)
[2022-11-27 06:28] LABS: Alanine Aminotransferase 127 U/L (6-50); Albumin Level 3.7 g/dL (3.5-5.1); Alkaline Phosphatase 131 U/L (38-126); Anion Gap 3 mmol/L (8-16); Aspartate Amino Transferase 44 U/L (17-59); Bilirubin,Total 1.1 mg/dL (0.2-1.3); Blood Urea Nitrogen 14 mg/dL (9-20); Calcium 8.3 mg/dL (8.4-10.2); Carbon Dioxide 29 mmol/L (22-30); Chloride 105 mmol/L (98-107); Estimated CRCL calculation 96 ml/min; Estimated Glomerular Filt Rate > 60; Glucose 114 mg/dL (65-110); Magnesium 2.1 mg/dL (1.6-2.3); Potassium 3.9 mmol/L (3.4-5.0); Sodium 137 mmol/L (137-145)
[2022-11-27 06:49] LABS: White Blood Count 1.7 K/mm3 (4.5-10.0)
[2022-11-27] MEDS: ENOXAPARIN 40 MG/0.4 ML SYRINGE SUB-Q (08:04)
--- NOTE | 2022-11-27 09:47 | PM.PNGS ---
Progress Note: A&P Assessment and Plan (1) Cholecystitis with cholelithiasis: Code(s): K80.10 - Calculus of gallbladder with chronic cholecystitis without obstruction Status: Acute Assessment and Plan: exam benign, cont low fat diet, ok to dc home c abx, low fat diet, f/u 2 wks to discuss interval cholecystectomy Subjective Subjective Date/Time Seen: 11/27/22 09:47 Interval history: no acute issues, juan low fat diet, no pain, no N/V Review of Systems Review of Systems: All systems reviewed & are unremarkable except as noted in HPI and below Exam Const: General: cooperative, comfortable and no acute distress GI: Inspection: normal to inspection and non-distended GI Palp: No abdominal tenderness, Yes Soft to palpation, No Tenderness to palpation present (GI), No Guarding due to palpation present (GI) and No Rigid due to palpation Objective Data Vital Signs Vital Signs: Vital Signs - 24 hr 11/26/22 10:16 11/26/22 14:30 11/26/22 19:34 Temperature 36.6 C 36.7 C 36.9 C Pulse Rate 87 83 73 Respiratory Rate 20 16 17 Blood Pressure 110/63 110/57 L 114/55 L Pulse Oximetry 97 99 97 Oxygen Delivery 11/27/22 05:04 11/26/22 21:30 Temperature 36.4 C L Pulse Rate 66 Respiratory Rate 16 Blood Pressure 117/66 Pulse Oximetry 98 Oxygen Delivery Room Air Intake/Output Intake/Output: Intake & Output 11/24/22 11/25/22 11/26/22 11/27/22 23:59 23:59 23:59 23:59 Intake Total 600 2580 2150 460 Output Total 1600 650 900 Balance 680 650 8193 -440 Meds/Results Medications: Active Medications Generic Name Dose Route Start Last Admin Trade Name Freq PRN Reason Stop Dose Admin Acetaminophen 1,000 mg 11/25/22 01:09 Acetaminophen 500 Mg Tablet PO Q6H PRN Mild Pain (1-3) or Fever Al Hydrox/Mg Hydrox/Simethicone 30 ml 11/25/22 01:09 Mag Hydrox/Al Hydrox/Simeth 30 Ml Udc PO Q6H PRN Indigestion Dextrose 12.5 gm 11/26/22 11:53 Dextrose 50% 25 Gm/50 Ml Syringe IV PUSH PRN PRN Hypoglycemia Protocol Enoxaparin Sodium 40 mg 06/17/23 09:00 11/27/22 08:04 Enoxaparin 40 Mg/0.4 Ml Syringe SUB-Q 40 mg DAILY JAMAR Administration Glucagon 1 mg 11/26/22 11:53 Glucagon For Inj 1 Mg Vial IM PRN PRN Hypoglycemia Protocol Glucose 15 gm 11/26/22 11:53 Glucose Oral Gel 15 Gm Of Glucse In 37.5 Gm Tube PO PRN PRN Hypoglycemia Protocol Meropenem 1 gm/ Sodium 100 mls @ 200 mls/hr 11/25/22 14:00 11/27/22 05:39 Chloride IVPB Infused Q8HR JAMAR Infusion Dextrose 1,000 mls @ 100 mls/hr 11/26/22 11:53 Dextrose 5% 1,000 Ml IVPB PRN PRN Hypoglycemia Protocol Insulin Aspart 2 - 5 units 11/26/22 12:00 11/27/22 08:10 Insulin Aspart (*Bkc) 100 Units/Ml SUB-Q Not Given TIDWM JAMAR Protocol Ondansetron HCl 4 mg 11/25/22 01:09 Ondansetron Inj 4 Mg/2 Ml Vial IV PUSH Q6H PRN Nausea And Vomiting Polyethylene Glycol 17 gm 11/25/22 01:09 11/26/22 08:53 Polyethylene Glycol 3350 17 Gm Powd.Pack PO 17 gm QAM PRN Administration Constipation Radiology Results: ITS Impressions Chest X-Ray 11/24/22 18:23 IMPRESSION: No acute cardiopulmonary process. Head CT 11/24/22 18:38 IMPRESSION: 11 mm circumscribed hypodensity in the left external capsule, suspicious for a focal acute or subacute infarct. Consider MR of the brain for further evaluation. Abdomen Ultrasound 11/25/22 09:45 IMPRESSION: Cholelithiasis Thickening of the gallbladder wall, which may be due to acute or chronic cholecystitis Brain MRI 11/27/22 06:48 IMPRESSION: No acute infarct, intracranial hemorrhage, or mass lesion. Moderate chronic microvascular ischemic changes. Bilateral maxillary sinus disease. Labs Labs: Laboratory Results - last 24 hr 11/26/22 11/26/22 11/26/22 11:39 11:41 12:16 WBC RBC Hgb H
[2022-11-27 11:21] LABS: Glucose Point of Care 126 mg/dl (65-105)
[2022-11-27 11:53] LABS: Glucose Point of Care 111 mg/dl (65-105)
--- NOTE | 2022-11-27 13:00 | PM.IMPN ---
Progress Note: A&P Assessment and Plan (1) Altered mental status: Code(s): R41.82 - Altered mental status, unspecified Status: Acute (2) Sepsis: Code(s): A41.9 - Sepsis, unspecified organism Status: Acute (3) UTI (urinary tract infection): Code(s): N39.0 - Urinary tract infection, site not specified Status: Acute (4) Thyroid mass: Code(s): E07.9 - Disorder of thyroid, unspecified Status: Acute (5) Abnormal LFTs: Code(s): R79.89 - Other specified abnormal findings of blood chemistry Status: Acute Plan This a 67-year-old presented with effusion mild fever got lost. Similar issues in past related to UTI. Vital was stable. UA positive. Ceftriaxone given in the ER. Was noted to have mild thrombocytopenia and elevated LFTs AST 521 ALT 466 an Julio C phosphorus 244 bilirubin elevated at 4. Troponin negative electrolytes okay salicylate it alcohol and acetaminophen is negative. CT head with 11 mm circumscribed hypodensity in the left external capsule suspicious for a focal acute or subacute infarct. Chest x-ray with no acute cardiopulmonary process. Abdominal ultrasound showed cholelithiasis along thickening of the gallbladder wall which may be due to acute or chronic cholecystitis. She does not have any pain or tenderness or any GI symptoms. Will continue to trend LFTs. Will have General surgery evaluate. Check lipase level. May need further evaluation with HIDA scan. She is turning out to be bacteremic with Gram-negative bacilli. Possible source gallbladder versus UTI. Patient was switched to Zosyn. She has a history of ESBL E coli. Will change antibiotics to meropenem. Will start clear liquid diet and advanced as tolerated for now. DVT prophylaxis Lovenox. History of congestive heart failure well compensated on Entresto metoprolol Lasix and spironolactone. Also on empagliflozin. Hold empagliflozin and diuretics 11/26/2022:This a 67-year-old presented with effusion mild fever and got lost. Similar issues in past related to UTI. Vital was stable. UA positive. Ceftriaxone given in the ER. Was noted to have mild thrombocytopenia and elevated LFTs AST 521 ALT 466 an Julio C phosphorus 244 bilirubin elevated at 4. Troponin negative electrolytes okay salicylate it alcohol and acetaminophen is negative. CT head with 11 mm circumscribed hypodensity in the left external capsule suspicious for a focal acute or subacute infarct. Chest x-ray with no acute cardiopulmonary process. Abdominal ultrasound showed cholelithiasis along thickening of the gallbladder wall which may be due to acute or chronic cholecystitis. She does not have any pain or tenderness or any GI symptoms. Will continue to trend LFTs. General surgery evaluated. Light lipase level came back elevated as well. lFT continues to improve. She most likely have passed stone. She will need interval cholecystectomy. General surgery was consulted and appreciate their recommendations. She is noted to be bacteremic which is E coli. On meropenem due to prior history of ESBL E coli. Continue to follow sensitivity. Urine culture growing E coli as well. Most likely source is UTI. On diet which she is tolerating well. DVT prophylaxis Lovenox. History of congestive heart failure well compensated on Entresto metoprolol Lasix and spironolactone. Also on empagliflozin. Hold empagliflozin and diuretics. MRI was taken however the report is pending 11/27/2022: This a 67-year-old presented with effusion mild fever and got lost. Similar issues in past related to UTI. Vital was stable. UA positive. Ceftriaxone given in the ER. Was noted to have mild thrombocytopenia and elevated LFTs AST 521 ALT 466 an Alck phosphorus 244 bilirubin elevated at 4. Troponin negative electrolytes okay salicylate it alcohol and acetaminophen is negative. CT head with 11 mm circumscribed hypodensity in the left external capsule suspicious for a focal
[2022-11-27 13:54] VITALS: BP 113/63; PULSE 80; RESP 18; TEMP 36.5; O2SAT 100
[2022-11-27 17:06] LABS: Glucose Point of Care 124 mg/dl (65-105)
[2022-11-27 19:25] VITALS: BP 115/67; PULSE 76; RESP 17; TEMP 36.5; O2SAT 98
[2022-11-27 20:00] VITALS: PULSE 76; RESP 17; O2SAT 98
[2022-11-27] MEDS: SULFAMETHOXAZOLE/TRIMETHOPRIM 800/160 MG DS TABLET 2 TAB PO (20:27)
[2022-11-27 20:35] LABS: Glucose Point of Care 163 mg/dl (65-105)
[2022-11-28 04:53] VITALS: BP 118/74; PULSE 65; RESP 16; TEMP 35.8; O2SAT 95
[2022-11-28 05:56] LABS: Alanine Aminotransferase 99 U/L (6-50); Albumin Level 3.6 g/dL (3.5-5.1); Alkaline Phosphatase 105 U/L (38-126); Anion Gap 3 mmol/L (8-16); Aspartate Amino Transferase 40 U/L (17-59); Bilirubin,Total 0.8 mg/dL (0.2-1.3); Blood Urea Nitrogen 15 mg/dL (9-20); Calcium 8.7 mg/dL (8.4-10.2); Carbon Dioxide 32 mmol/L (22-30); Chloride 104 mmol/L (98-107); Estimated CRCL calculation 83 ml/min; Estimated Glomerular Filt Rate > 60; Glucose 105 mg/dL (65-110); Magnesium 2.1 mg/dL (1.6-2.3); Potassium 4.2 mmol/L (3.4-5.0); Sodium 139 mmol/L (137-145)
[2022-11-28 06:51] LABS: Basophils Percent Auto 0.5 % (0.2-1.2); Eosinophils Absolute Auto 0.1 K/mm3 (0-0.3); Eosinophils Percent Auto 2.6 % (0-4.4); Hematocrit 34.7 % (42.0-52.0); Hemoglobin 11.3 g/dL (14.0-18.0); Immature Granulocyte Absolute 0.01 K/mm3 (0.00-0.031); Immature Granulocyte Percent A 0.5 % (0-0.5); Lymphocytes Absolute Auto 0.66 K/mm3 (0.9-3.2); Lymphocytes Percent Auto 34.9 % (18.3-44.2); Mean Corpuscular HGB Conc 32.6 g/dl (32-36); Mean Corpuscular Hemoglobin 28.3 pg (26-34); Mean Platelet Volume 10.3 fl (7.4-10.4); Monocytes Absolute Auto 0.3 K/mm3 (0.1-0.6); Monocytes Percent Auto 13.2 % (2.6-8.5); Neutrophils Absolute Auto 0.9 K/mm3 (1.3-6.7); Neutrophils Percent Auto 48.3 % (45.5-73.1); Platelet Count Result 125 k/mm3 (150-375); Red Blood Count 3.99 M/mm3 (4.6-6.20); Red Cell Distribution Width 14.6 % (11.5-14.5)
[2022-11-28 06:56] LABS: White Blood Count 1.9 K/mm3 (4.5-10.0)
[2022-11-28] MEDS: SULFAMETHOXAZOLE/TRIMETHOPRIM 800/160 MG DS TABLET 2 TAB PO (08:05)
[2022-11-28] MEDS: ENOXAPARIN 40 MG/0.4 ML SYRINGE SUB-Q (08:05)
[2022-11-28 08:12] LABS: Glucose Point of Care 113 mg/dl (65-105)
[2022-11-28 12:20] LABS: Glucose Point of Care 117 mg/dl (65-105)
[2022-11-28 14:15] VITALS: BP 105/65; PULSE 66; RESP 18; TEMP 36.5; O2SAT 99
[2022-11-28 16:56] LABS: Glucose Point of Care 111 mg/dl (65-105)
--- NOTE | 2022-11-28 17:36 | P.DS_ITS ---
DS: Admitting Diagnosis Discharge Date 11/28/2022 Admitting Diagnosis Acute mental status DS: Discharge Diagnosis Discharge Diagnosis (1) Altered mental status: Code(s): R41.82 - Altered mental status, unspecified Status: Acute (2) Sepsis: Code(s): A41.9 - Sepsis, unspecified organism Status: Acute (3) UTI (urinary tract infection): Code(s): N39.0 - Urinary tract infection, site not specified Status: Acute (4) Thyroid mass: Code(s): E07.9 - Disorder of thyroid, unspecified Status: Acute (5) Abnormal LFTs: Code(s): R79.89 - Other specified abnormal findings of blood chemistry Status: Acute Plan This a 67-year-old presented with effusion mild fever got lost. Similar issues in past related to UTI. Vital was stable. UA positive. Ceftriaxone given in t he ER. Was noted to have mild thrombocytopenia and elevated LFTs AST 521 ALT 466 an Julio C phosphorus 244 bilirubin elevated at 4. Troponin negative electrolytes okay salicylate it alcohol and acetaminophen is negative. CT head with 11 mm circumscribed hypodensity in the left external capsule suspicious for a focal acute or subacute infarct. Chest x-ray with no acute cardiopulmonary process. Abdominal ultrasound showed cholelithiasis along thickening of the gallbladder wall which may be due to acute or chronic cholecystitis. She does not have any pain or tenderness or any GI symptoms. Will continue to trend LFTs. Will have General surgery evaluate. Check lipase level. May need further evaluation with HIDA scan. She is turning out to be bacteremic with Gram-negative bacilli. Possible source gallbladder versus UTI. Patient was switched to Zosyn. She has a history of ESBL E coli. Will change antibiotics to meropenem. Will start clear liquid diet and advanced as tolerated for now. DVT prophylaxis Lovenox. History of congestive heart failure well compensated on Entresto metoprolol Lasix and spironolactone. Also on empagliflozin. Hold empagliflozin and diuretics 11/26/2022:This a 67-year-old presented with effusion mild fever and got lost. Similar issues in past related to UTI. Vital was stable. UA positive. Ceftriaxone given in the ER. Was noted to have mild thrombocytopenia and elevated LFTs AST 521 ALT 466 an Julio C phosphorus 244 bilirubin elevated at 4. Troponin negative electrolytes okay salicylate it alcohol and acetaminophen is negative. CT head with 11 mm circumscribed hypodensity in the left external capsule suspicious for a focal acute or subacute infarct. Chest x-ray with no acute cardiopulmonary process. Abdominal ultrasound showed cholelithiasis along thickening of the gallbladder wall which may be due to acute or chronic cholecystitis. She does not have any pain or tenderness or any GI symptoms. Will continue to trend LFTs. General surgery evaluated. Light lipase level came back elevated as well. lFT continues to improve. She most likely have passed stone. She will need interval cholecystectomy. General surgery was consulted and appreciate their recommendations. She is noted to be bacteremic which is E coli. On meropenem due to prior history of ESBL E coli. Continue to follow sensitivity. Urine culture growing E coli as well. Most likely source is UTI. On diet which she is tolerating well. DVT prophylaxis Lovenox. History of congestive heart failure well compensated on Entresto metoprolol Lasix and spironolactone. Also on empagliflozin. Hold empagliflozin and diuretics. MRI was taken however the report is pending 11/27/2022: This a 67-year-old presented with effusion mild fever and got lost. Similar issues in past related to UTI. Vital was
--- NOTE | 2022-11-28 18:14 | PDONCCN ---
HPI - Date of Consult Date/Time: 11/28/22 18:14 Requesting Physician: Kim Louis MD Primary Care Provider: Stacey Baer, - Consult Narrative Reason for consult: Pancytopenia Narrative: Miryam Pablo is a 67 year old female with history of type 2 diabetes and congestive heart failure came into the hospital with mental status changes and confusion. She was diagnosed with UTI and sepsis. Labs showed total bilirubin of 4.0 with elevated AST of 521 and ALT of 466. WBC was normal at 6.5 but now dropped down to 1.9. Hemoglobin was 12.8 now dropped down to 11.3. Platelet count was 810140 now 125,000. Urine culture showed E coli. Head CT showed 11 mm hypodensity in the left external capsule suspicious for focal acute or subacute infarction. Brain MRI showed no acute infarction or hemorrhage. Abdominal ultrasound showed thickening of the gallbladder could be acute or chronic cholecystitis. Patient was treated with antibiotics for UTI and currently on Bactrim. She also received Zosyn and meropenem. She was complaining of tiredness and fatigue on admission but now feeling better. Denies any fever chills and weight loss. Denies any new lung sounds are lymphadenopathy. No other new complaint. She denies any previous history of malignancy or hematological disorder. Denies any previous history of liver disease. She denies any history of alcohol abuse. Review of Systems - Review of Systems All systems reviewed & are unremarkable except as noted in HPI and bel - Neurologic Reports system reviewed and no additional complaints, except as documented, Reports weakness [facility] Medical History: Medical History (Last Reviewed 11/25/22 @ 17:24 by Trena Horvath MD) Diabetes Hypertension Surgical History: Surgical History (Last Reviewed 11/25/22 @ 17:24 by Trena Horvath MD) No pertinent past surgical history - Social History Social History: Social History (Last Reviewed 11/25/22 @ 17:24 by Trena Horvath MD) Alcohol Use: Alcohol intake: never Substance Use: Substance use: never Substance use type: does not use Others: Spiritual care concerns: No Smoking Status: Smoking status: Never smoker Social Determinants of Health: Has the Lack of Transportation Kept You From Medical Appointments or From Getting Medications?: No Within the Past 12 Months, Were You Worried Whether Your Food Would Run Out Before You Got Money to Buy More?: Never True What is Your Housing Situation Today?: I Have Housing Are You Worried That in the Next 2 Months, You May Not Have Your Own Housing to Live In?: No Do You Have Trouble Paying Your Heating Or Electricity Bill?: No Do You Have Trouble Paying For Medicines?: No Are You Currently Unemployed and Looking for Work?: No Highest Level of Education Completed: Bachelor's Degree Do You Have Trouble With Childcare or the Care of a Family Member?: No Exam - Vital Signs Vital Signs - 24 hr 11/27/22 19:25 11/27/22 20:00 11/28/22 04:53 Temperature 36.5 C 35.8 C L Pulse Rate 76 76 65 Respiratory Rate 17 17 16 Blood Pressure 115/67 118/74 Pulse Oximetry 98 98 95 Oxygen Delivery Room Air 11/28/22 08:00 11/28/22 14:15 Temperature 36.5 C Pulse Rate 66 Respiratory Rate 18 Blood Pressure 105/65 Pulse Oximetry 99 Oxygen Delivery Room Air - Exam HEENT: EOMI, PERRLA, mucous membranes moist and pink Neck: No: JVD Lungs: clear to auscultation, normal air movement Heart: no murmurs, gallops, or rubs, regular rhythm, regular rate Abdomen: abdomen soft, non-distended, normal bowel sounds Extremities: normal pulses Integumentary: no abnormalities Neurological: normal speech Psychological: mental status NL, mood NL - Lab Results Laboratory Last Values WBC 1.9 K/mm3 (4.5-10.0) L 11/28/22 05:11 RBC 3.99 M/mm3 (4.6-6.20) L 11/28/22 05:11 Hgb 11.3 g/dL (14.0-18.0) L 11/10
[2022-11-28 20:56] LABS: Iron 82 ug/dL (37-170); Percent Iron Saturation 27 % (20-50)
[2022-11-28 22:01] LABS: Folic Acid 14.5 ng/mL (2.76->20)
== END 2022-11-28 19:15 | disposition home or self-care (01) | DRG 872 ==
LOC: ANHED 19:52 → ANH2MED 20:15
PROVIDERS: Internal Medicine; Internal Medicine Hematology & Oncology; Admitting Provider Internal Medicine; Emergency Provider Emergency Medicine; PCP Internal Medicine Geriatric Medicine; Visit Provider Family Medicine
DX: A41.9 Sepsis, unspecified organism (principal); N39.0 Urinary tract infection, site not specified; K80.12 Calculus of gallbladder with acute and chronic cholecystitis without obstruction; Z16.12 Extended spectrum beta lactamase (ESBL) resistance; D61.818 Other pancytopenia; B96.20 Unspecified Escherichia coli [E. coli] as the cause of diseases classified elsewhere; E11.9 Type 2 diabetes mellitus without complications; D69.6 Thrombocytopenia, unspecified; E07.9 Disorder of thyroid, unspecified; I11.0 Hypertensive heart disease with heart failure; I50.9 Heart failure, unspecified; Z79.84 Long term (current) use of oral hypoglycemic drugs
CPT/HCPCS: 36415; 70450; 70551; 71046; 76705; 80053; 80307; 81001; 82607; 82728; 82746; 82948; 83036; 83540; 83550; 83690; 83735; 84443; 84484; 85025; 85055; 85610; 87040; 87077; 87086; 87186; 93005; 96365; 96372; 99285; A9270; G0378; J0696; J1650; J2185; J2543; J7120

== ENCOUNTER 2023-04-23 11:47 | Emergency (ER) | payer MEDICARE, SELFPAY ==
[2023-04-23 11:56] VITALS: BP 106/65; PULSE 76; RESP 20; TEMP 36.2; O2SAT 95
--- NOTE | 2023-04-23 12:44 | ED.FEMALEGU ---
HPI - Female Genitourinary General Chief complaint: Upper Respiratory Infection Stated complaint: Cough/Urinary Problem Time Seen by Provider: 04/23/23 12:41 Mode of arrival: ambulatory Limitations: no limitations History of Present Illness HPI Narrative: 68-year-old female presents with concern for urinary tract infection. Reports she has been tired, having urine frequency, urinary incontinence. She also reports some mild cough with rhinorrhea. She denies fever, abdominal pain, vomiting, nausea, shortness of breath, headache. She also reports she has some left knee pain with swelling for which she has a doctor appointment on May 11. She reports history urinary of urinary tract infection MD elicited complaint: UTI Related Data Home Medications Medication Instructions Recorded Confirmed Vitamin D3 1 tablet PO DIRECTED 04/23/23 04/23/23 furosemide 20 mg tablet 20 mg PO DAILY 04/23/23 04/23/23 levothyroxine 50 mcg tablet 50 mcg PO DAILY 04/23/23 04/23/23 metoprolol succinate 25 mg 25 mg PO DAILY 04/23/23 04/23/23 tablet,extended release 24 hr rosuvastatin 10 mg tablet 10 mg PO DAILY 04/23/23 04/23/23 sacubitril 24 mg-valsartan 26 mg 1 tablet PO BID 04/23/23 04/23/23 tablet (Entresto) spironolactone 50 mg tablet 50 mg PO DAILY 04/23/23 04/23/23 Allergies Allergy/AdvReac Type Severity Reaction Status Date / Time No Known Allergies Allergy Verified 04/23/23 12:05 Review of Systems Review of Systems: CONSTITUTIONAL: Reports malaise, fatigue. Denies chills, sweats, or fever. EYES: Denies visual changes, redness, or discharge. ENT: Reports rhinorrhea. Denies congestion, sinus pain, otalgia or sore throat. CARDIOVASCULAR: Denies chest pain, palpitations, or edema. RESPIRATORY: Reports cough. Denies dyspnea. GASTROINTESTINAL: Denies abdominal pain, nausea, vomiting, diarrhea, bloody, or mucous stools. GENITOURINARY: Denies dysuria or hematuria. Reports urine frequency, urinary incontinence SKIN: Denies rash or itching. MUSCULOSKELETAL: Denies back pain, joint pain, or myalgia. NEUROLOGIC: Denies numbness, weakness, or headache. All systems reviewed & are unremarkable except as noted in HPI and below PMFSH Past Medical History Medical History Diabetes Hypertension Surgical History Surgical History No pertinent past surgical history Social History Social History Smoking status: Never smoker Alcohol intake: never Substance use: never Substance use type: does not use Lack of Transportation: No Lack of Food: Never True Current Housing: I Have Housing Concerned About Future Housing: No Difficulty Paying Gas/Electric Bills: No Difficulty Paying for Meds: No Currently Unemployed: No Education: Bachelor's Degree Difficulty w/ Childcare or Family Care: No Spiritual care concerns: No Comments At time of signature, agree with nursing past medical, surgical, social and family history. There is no relevant family history pertinent to the presenting complaint Exam Narrative: GENERAL: Well-appearing, well-nourished, and in no acute distress. HEAD: Normocephalic, atraumatic. EYES: PERRLA, sclera clear, and EOMI. No nystagmus. ENT: Nares clear. Mucous membranes moist. TM pearly carey with sharp light reflex bilaterally; no tragal tenderness. Oropharynx without erythema or lesions. Tonsils not enlarged and without exudate. NECK: Supple. No lymphadenopathy. No jugular venous distension, thyromegaly, or carotid bruits. Carotids were easily palpable bilaterally. CHEST: No respiratory distress. Clear to auscultation. No bony deformities, no asymmetry. Speaks in full sentences. HEART: Regular rate and rhythm. No murmur heard. Normal peripheral pulses. ABDOMEN: Soft, nontender, nondistended, normal active bowel sounds, no pa
== END 2023-04-23 12:57 | disposition home or self-care (01) ==
PROVIDERS: Emergency Provider Nurse Practitioner; PCP Internal Medicine Geriatric Medicine
DX: N39.0 Urinary tract infection, site not specified (principal); B95.1 Streptococcus, group B, as the cause of diseases classified elsewhere; E11.9 Type 2 diabetes mellitus without complications; I10 Essential (primary) hypertension
CPT/HCPCS: 81003; 87077; 87086; 87088; 99213; G0463

== ENCOUNTER 2023-07-13 11:11 | Emergency (ER) | payer MEDICARE, SELFPAY ==
[2023-07-13 11:19] VITALS: BP 132/63; PULSE 89; RESP 16; TEMP 37; O2SAT 99
--- NOTE | 2023-07-13 11:47 | PC.NURSE ---
in br to obtain ua spec.
--- NOTE | 2023-07-13 12:12 | ED.FEMALEGU ---
HPI - Female Genitourinary General Chief complaint: Urogenital-Female Stated complaint: Vomiting/Fatigue/Nausea Time Seen by Provider: 07/13/23 12:12 Source: patient Mode of arrival: ambulatory Limitations: no limitations History of Present Illness HPI Narrative: 68-year-old female presents with complaint of generalized weakness, fatigue, nausea and vomiting for 2 days. Reports no vomiting today but continues to feel nauseated. Able to eat and drink. Patient reports she has recently had several urinary tract infections, does not have urinary symptoms with her infections. Reports that her urine has been dark and her daughter told her to come and get checked for UTI. Afebrile. Alert and oriented. All systems reviewed and negative except as noted above. Related Data Home Medications Medication Instructions Recorded Confirmed Vitamin D3 1 tablet PO DIRECTED 04/23/23 05/11/23 furosemide 20 mg tablet 20 mg PO DAILY 04/23/23 05/11/23 levothyroxine 50 mcg tablet 50 mcg PO DAILY 04/23/23 05/11/23 metoprolol succinate 25 mg 25 mg PO DAILY 04/23/23 04/23/23 tablet,extended release 24 hr rosuvastatin 10 mg tablet 10 mg PO DAILY 04/23/23 05/11/23 sacubitril 24 mg-valsartan 26 mg 1 tablet PO BID 04/23/23 05/11/23 tablet (Entresto) spironolactone 50 mg tablet 50 mg PO DAILY 04/23/23 05/11/23 metformin 500 mg tablet 500 mg PO DAILY 05/11/23 05/11/23 Allergies Allergy/AdvReac Type Severity Reaction Status Date / Time No Known Allergies Allergy Verified 07/13/23 11:39 Review of Systems Review of Systems: CONSTITUTIONAL: Denies fever, chills, or sweats. Reports generalized weakness and fatigue. EYES: Denies visual changes, redness, or discharge. ENT: Denies rhinorrhea, congestion, sore throat, or otalgia. CARDIOVASCULAR: Denies chest pain, palpitations, or edema. RESPIRATORY: Denies cough or dyspnea. GASTROINTESTINAL: Denies abdominal pain. Reports nausea, vomiting. Denies diarrhea. GENITOURINARY: Denies dysuria or hematuria. SKIN: Denies rash or itching. MUSCULOSKELETAL: Denies back pain, joint pain, or myalgia. NEUROLOGIC: Denies headache, numbness, or weakness. PSYCHIATRIC: Denies anxiety or depression. All other systems reviewed are negative, except as documented in HPI. [facility] Past Medical History Medical History Diabetes History of urinary tract infection 01/2022 & 01/2023 caused from Jardiance Hypertension Surgical History Surgical History No pertinent past surgical history Social History Social History (Updated 06/22/23 @ 13:54 by Suellen Roland) Smoking status: Never smoker Alcohol intake: never Substance use: never Substance use type: does not use Do You Feel Safe in your Home?: Yes Lack of Transportation: No Lack of Food: Never True Current Housing: I Have Housing Concerned About Future Housing: No Difficulty Paying Gas/Electric Bills: No Difficulty Paying for Meds: No Currently Unemployed: No Education: Bachelor's Degree Difficulty w/ Childcare or Family Care: No Spiritual care concerns: No Comments At time of signature, agree with nursing past medical, surgical, social and family history. There is no relevant family history pertinent to the presenting complaint. Exam Narrative: GENERAL: This is a well-nourished, well-developed patient, in no apparent distress. HEAD: normocephalic, atraumatic. EYES: PERRL. Sclera clear/white. Vision is grossly intact. EARS: External ears normal NOSE: External nose normal NECK: Neck supple, non-tender without lymphadenopathy, masses or thyromegaly. CARDIOVASCULAR: Regular rate and rhythm without murmurs, gallops, or rubs. RESPIRATORY: Clear to auscultation. Breath sounds equal bilaterally. No wheezes, rales, or rhonchi. SKIN: warm, Dry, intact with no suspicious lesions or rash, good texture and turgor. NEURO:
== END 2023-07-13 12:26 | disposition home or self-care (01) ==
PROVIDERS: Emergency Provider Nurse Practitioner Family; PCP Internal Medicine Geriatric Medicine
DX: N39.0 Urinary tract infection, site not specified (principal); E11.9 Type 2 diabetes mellitus without complications; I10 Essential (primary) hypertension
CPT/HCPCS: 81003; 87077; 87086; 87186; 99213; G0463

== ENCOUNTER 2023-09-01 12:39 | Emergency (ER) | payer MEDICARE, SELFPAY ==
[2023-09-01 12:46] VITALS: BP 111/61; PULSE 97; RESP 20; TEMP 36.4; O2SAT 98
[2023-09-01 12:57] VITALS: BP 111/61; PULSE 97; RESP 20; TEMP 36.4; O2SAT 98
[2023-09-01 14:14] LABS: Glucose Point of Care 183 mg/dl (65-105)
--- NOTE | 2023-09-01 14:18 | ED.GENADULT ---
HPI - General Adult General Chief complaint: Urogenital-Female Stated complaint: Poss UTI Source: patient Mode of arrival: ambulatory Limitations: no limitations History of Present Illness HPI narrative: Patient presents for evaluation of dark colored urine since yesterday. She is concerned she has a urinary tract infection. She denies any other urinary symptoms however states that in the past when she has concentrated urine she has been diagnosed with a urinary tract infection. She reports being admitted at the end of last year for UTI. Her primary care provider put her on Macrobid, which she is currently taking, to prevent UTI's. She has been taking the medication for close to two weeks. She has two days left of macrobid. No fever, abdominal pain, low back pain, or vomiting. She had some chills overnight and also had some nausea. She reports an increase in fatigue as of yesterday. She is on metformin but states she is not diabetic. Related Data Home Medications Medication Instructions Recorded Confirmed Vitamin D3 1 tablet PO DIRECTED 04/23/23 09/01/23 furosemide 20 mg tablet 20 mg PO DAILY 04/23/23 09/01/23 levothyroxine 50 mcg tablet 50 mcg PO DAILY 04/23/23 09/01/23 metoprolol succinate 25 mg 25 mg PO DAILY 04/23/23 09/01/23 tablet,extended release 24 hr rosuvastatin 10 mg tablet 10 mg PO DAILY 04/23/23 09/01/23 sacubitril 24 mg-valsartan 26 mg 1 tablet PO BID 04/23/23 09/01/23 tablet (Entresto) spironolactone 50 mg tablet 50 mg PO DAILY 04/23/23 09/01/23 metformin 500 mg tablet 500 mg PO DAILY 05/11/23 09/01/23 Allergies Allergy/AdvReac Type Severity Reaction Status Date / Time No Known Allergies Allergy Verified 07/13/23 11:39 Review of Systems Review of Systems: CONSTITUTIONAL:Reports recent chills, none currently. Denies fever or sweats. EYES: Denies visual changes, redness, or discharge. ENT: Denies rhinorrhea, congestion, sore throat, or otalgia. CARDIOVASCULAR: Denies chest pain, palpitations, or edema. RESPIRATORY: Denies cough or dyspnea. GASTROINTESTINAL:Reports recent nausea, none currently. Denies abdominal pain, vomiting, or diarrhea. GENITOURINARY: Reports concentrated urine. Denies dysuria or hematuria. SKIN: Denies rash or itching. MUSCULOSKELETAL: Denies back pain, joint pain, or myalgia. NEUROLOGIC: Denies headache, numbness, dizziness, or weakness. PSYCHIATRIC: Denies anxiety or depression. [facility] Past Medical History Medical History Diabetes History of urinary tract infection 01/2022 & 01/2023 caused from Jardiance Hypertension Surgical History Surgical History No pertinent past surgical history Family History Family History Mother Family history non-contributory Social History Social History Smoking status: Never smoker Alcohol intake: never Substance use: never Substance use type: does not use Do You Feel Safe in your Home?: Yes Lack of Transportation: No Lack of Food: Never True Current Housing: I Have Housing Concerned About Future Housing: No Difficulty Paying Gas/Electric Bills: No Difficulty Paying for Meds: No Currently Unemployed: No Education: Bachelor's Degree Difficulty w/ Childcare or Family Care: No Spiritual care concerns: No Exam Narrative: GENERAL: Well-appearing, well-nourished, and in no acute distress. HEAD: Normocephalic, atraumatic. EYES: PERRLA and EOMI. ENT: Nares clear, no rhinorrhea or epistaxis. Mucous membranes moist. Oropharynx without tonsillar hypertrophy exudate or other lesions. Bilateral TMs pearly carey nonbulging NECK: Supple. No adenopathy or masses. No carotid bruits or JVD CHEST: Clear to auscultation. No respiratory distress. No wheezes rales
== END 2023-09-01 14:50 | disposition home or self-care (01) ==
PROVIDERS: Emergency Provider Nurse Practitioner; PCP Internal Medicine Geriatric Medicine
DX: R82.2 Biliuria (principal); Z87.440 Personal history of urinary (tract) infections; E11.9 Type 2 diabetes mellitus without complications; I10 Essential (primary) hypertension
CPT/HCPCS: 81003; 82948; 87086; 87088; 99213; G0463

== ENCOUNTER 2023-10-07 18:52 | Emergency (ER) | payer MEDICARE, SELFPAY ==
[2023-10-07] VITALS (8 sets, daily range): BP systolic 121–133; BP diastolic 58–71; PULSE 105–117; RESP 14–24; TEMP 36.9–38.8; O2SAT 91–96
--- NOTE | ~2023-10-07 | XR_ITS ---
EXAMINATION: XR chest 2V DATE: 10/07/2023 20:31 INDICATION: Fever. TECHNIQUE: Frontal and lateral views of the chest were obtained. COMPARISON: Chest 2 views 11/24/22 FINDINGS: There is no pneumonia, pleural effusion, or pneumothorax. The heart size is normal. IMPRESSION: 1. No acute cardiopulmonary disease. Reviewed, dictated and finalized at location E.
--- NOTE | 2023-10-07 19:20 | ECG_ITS ---
SEE SCANNED COPY FOR CONFIRMED REPORT MTDD
[2023-10-07 19:39] LABS: Basophils Percent Auto 0.5 % (0.2-1.2); Eosinophils Percent Auto 0.5 % (0-4.4); Hematocrit 33.3 % (37.0-47.0); Hemoglobin 11.1 g/dL (12.0-15.0); Immature Granulocyte Absolute 0.01 K/mm3 (0.00-0.031); Immature Granulocyte Percent A 0.2 % (0-0.5); Lymphocytes Absolute Auto 0.28 K/mm3 (0.9-3.2); Lymphocytes Percent Auto 6.4 % (18.3-44.2); Mean Corpuscular HGB Conc 33.3 g/dl (32-36); Mean Corpuscular Hemoglobin 28.6 pg (26-34); Mean Corpuscular Volume 85.8 fl (80-100); Monocytes Absolute Auto 0.2 K/mm3 (0.1-0.6); Monocytes Percent Auto 4.3 % (2.6-8.5); Neutrophils Absolute Auto 3.9 K/mm3 (1.3-6.7); Neutrophils Percent Auto 88.1 % (45.5-73.1); Platelet Count Result 103 k/mm3 (150-375); Red Blood Count 3.88 M/mm3 (4.2-5.4); Red Cell Distribution Width 14.9 % (11.5-14.5); White Blood Count 4.4 K/mm3 (4.5-10.0)
[2023-10-07 19:50] LABS: Alanine Aminotransferase 16 U/L (6-35); Alkaline Phosphatase 71 U/L (38-126); Anion Gap 8 mmol/L (4-12); Aspartate Amino Transferase 19 U/L (14-36); Bilirubin,Total 0.8 mg/dL (0.2-1.3); Blood Urea Nitrogen 20 mg/dL (7-17); Calcium 9.2 mg/dL (8.4-10.2); Carbon Dioxide 25 mmol/L (22-30); Chloride 105 mmol/L (98-107); Estimated Glomerular Filt Rate > 60; Glucose 259 mg/dL (65-110); Potassium 3.6 mmol/L (3.4-5.0); Sodium 138 mmol/L (137-145)
[2023-10-07 19:51] LABS: INR 1.1; Prothrombin Time 14.5 Seconds (11.1-14.7)
[2023-10-07 19:54] LABS: Lactic Acid Reflex 1.9 mmol/L (0.7-2.0)
[2023-10-07 19:58] LABS: Appearance Urine Clear (Clear); Bilirubin Urine Negative (Negative); Blood Urine Negative (Negative); Color Urine Yellow (Yellow); Glucose Urine UA Negative (Negative); Ketones Urine Trace mg/dL (Negative); Leukocyte Esterase Ur Negative LEU/UL (Negative); Nitrate Urine Negative (Negative); Protein Urine Negative (Negative); pH Urine 5.5 (5.0-9.0)
--- NOTE | 2023-10-07 19:59 | ED.GENADULT ---
HPI - General Adult General Chief complaint: Altered Mental Status Stated complaint: TROUBLE FOCUSING, TALKING OUT OF HER HEAD Time Seen by Provider: 10/07/23 19:21 History of Present Illness HPI narrative: Patient is a 68-year-old female who presents ER with mild confusion. Patient was driving to her daughter's house when she pulled into a [employer] parking lot was waiting for her daughter to come out of the mu-ism instead of meeting her at the home. Patient was found to be febrile. Patient occasionally gets confused when she has UTI. She reports she has been urinating more than usual. No runny nose or sore throat or cough. No abdominal pain. No chest pain or chest pressure. She is oriented x3 at this time. Related Data Home Medications Medication Instructions Recorded Confirmed Vitamin D3 1 tablet PO DIRECTED 04/23/23 09/01/23 furosemide 20 mg tablet 20 mg PO DAILY 04/23/23 09/01/23 levothyroxine 50 mcg tablet 50 mcg PO DAILY 04/23/23 09/01/23 metoprolol succinate 25 mg 25 mg PO DAILY 04/23/23 09/01/23 tablet,extended release 24 hr rosuvastatin 10 mg tablet 10 mg PO DAILY 04/23/23 09/01/23 sacubitril 24 mg-valsartan 26 mg 1 tablet PO BID 04/23/23 09/01/23 tablet (Entresto) spironolactone 50 mg tablet 50 mg PO DAILY 04/23/23 09/01/23 metformin 500 mg tablet 500 mg PO DAILY 05/11/23 09/01/23 Allergies Allergy/AdvReac Type Severity Reaction Status Date / Time No Known Allergies Allergy Verified 07/13/23 11:39 Review of Systems Review of Systems: All systems reviewed & are unremarkable except as noted in HPI and below Constitutional: Constitutional: Denies chills, Reports fatigue and Reports fever(s) ENT: Reports system reviewed and no additional complaints, except as documented Cardiovascular: Cardiovascular: Reports no additional cardiovascular complaints Respiratory: Respiratory: Reports no additional respiratory complaints Gastrointestinal: Gastrointestinal: Reports no additional gastrointestinal complaints Genitourinary: Genitourinary: Reports no additional female genitourinary complaints [facility] Past Medical History Medical History (Updated 10/07/23 @ 21:17 by Nik Mckeon MD) B12 deficiency Diabetes History of urinary tract infection 01/2022 & 01/2023 caused from Jardiance with history of ESBL E coli but most recent culture July 2023 was E coli without ESBL Hypertension Surgical History Surgical History No pertinent past surgical history Family History Family History Mother Family history non-contributory Social History Social History Smoking status: Never smoker Alcohol intake: never Substance use: never Substance use type: does not use Do You Feel Safe in your Home?: Yes Lack of Transportation: No Lack of Food: Never True Current Housing: I Have Housing Concerned About Future Housing: No Difficulty Paying Gas/Electric Bills: No Difficulty Paying for Meds: No Currently Unemployed: No Education: Bachelor's Degree Difficulty w/ Childcare or Family Care: No Spiritual care concerns: No Exam Narrative: GENERAL: Well-appearing, well-nourished, and in no acute distress. HEAD: Normocephalic, atraumatic. ENT: Mucous membranes moist. NECK: Supple. CHEST: Clear to auscultation. No respiratory distress. HEART: Tachycardic and regular. Normal peripheral pulses. ABDOMEN: Soft, nontender, nondistended. EXTREMITIES: Normal range of motion. No edema. SKIN: Warm, dry, no rash. NEURO: Alert and oriented x3. PSYCH: Normal mood and affect. Course Course Emergency Course: patient resting comfortably. Afebrile. Informed of results. She is not altered. She will be discharged home. Vital Signs Vital signs: Vital Signs Temperature 101.9 F H 10/07/23
[2023-10-07 20:00] LABS: Add Urine Microscopic? NO
[2023-10-07] MEDS: ACETAMINOPHEN 500 MG TABLET 1000 MG PO (20:04)
[2023-10-07] MEDS: SODIUM CHLORIDE 0.9% IV 1,000 ML 999 ML IV CONT (20:05)
[2023-10-07 20:15] LABS: Influenza A QL RT-PCR Negative (Negative); Influenza B QL RT-PCR Negative (Negative); RSV RNA, RT-PCR Negative (Negative); SARS-CoV-2 RNA PCR Negative (Negative)
== END 2023-10-07 21:30 | disposition home or self-care (01) ==
PROVIDERS: Emergency Medicine; Emergency Provider Emergency Medicine; PCP Internal Medicine Geriatric Medicine
DX: B34.9 Viral infection, unspecified (principal); Z20.822 Contact with and (suspected) exposure to COVID-19; I10 Essential (primary) hypertension; E11.9 Type 2 diabetes mellitus without complications; E53.8 Deficiency of other specified B group vitamins; Z87.440 Personal history of urinary (tract) infections; Z79.84 Long term (current) use of oral hypoglycemic drugs; R00.0 Tachycardia, unspecified; I44.7 Left bundle-branch block, unspecified
CPT/HCPCS: 36415; 71046; 80053; 81003; 83605; 85025; 85610; 85730; 87637; 93005; 96360; 99284; A9270; J7030

== ENCOUNTER 2023-10-19 15:02 | Outpatient (CLI) | payer MEDICARE, SELFPAY ==
--- NOTE | ~2023-10-19 | XR_ITS ---
EXAMINATION: XR knee LT min 4V DATE: 10/19/2023 16:13 INDICATION: Unilateral primary osteoarthritis of the left knee TECHNIQUE: Weight bearing anteroposterior and Jaime, sunrise, and flexed lateral views of the lef t knee were obtained COMPARISON: None. FINDINGS: Alignment is normal. No fracture. Moderate to severe joint space narrowing the medial compartment of the left knee. Small marginal osteophytes in all 3 compartments. No joint effusion. Soft tissues are unremarkable. IMPRESSION: 1. Tricompartmental osteoarthritis, moderate to severe in the medial compartment and otherwise mild. Reviewed, dictated and finalized at location A. IMPRESSION: 1. Tricompartmental osteoarthritis, moderate to severe in the medial compartmen t and otherwise mild.
== END 2023-10-19 15:03 | disposition home or self-care (01) ==
LOC: ANHIMG 15:05
PROVIDERS: PCP Internal Medicine Geriatric Medicine; Visit Provider Orthopaedic Surgery
DX: M17.12 Unilateral primary osteoarthritis, left knee (principal)
CPT/HCPCS: 73564

== ENCOUNTER 2024-05-21 13:19 | Emergency (ER) | payer MEDICARE, SELFPAY ==
[2024-05-21 13:26] VITALS: BP 141/80; PULSE 104; RESP 20; TEMP 36.1; O2SAT 98
--- NOTE | 2024-05-21 13:46 | ED_ITS ---
HPI - URI/Sore Throat General Chief Complaint: Upper Respiratory Infection Stated Complaint: Congestion in Throat/Cough Time Seen by Provider: 05/21/24 13:46 Source: patient Mode of arrival: ambulatory Limitations: no limitations History of Present Illness HPI Narrative: 69-year-old female presented for complaint of cough, nasal congestion, and postnasal drainage worsening for 1 week. States symptoms started as a cold month ago. states the mucus in the throat causes her to feel short of breath. Symptoms are worse at night. Has taken [place] for symptoms. Denies nausea, vomiting, diarrhea or lethargy. Related Data Home Medications ?Medication ?Instructions ?Recorded ?Confirmed ?Last Taken ?Type levothyroxine 50 mcg tablet 50 mcg PO DAILY 04/23/23 05/21/24 Unknown History Allergies Allergy/AdvReac Type Severity Reaction Status Date / Time No Known Allergies Allergy Verified 02/29/24 11:07 Review of Systems Review of Systems: CONSTITUTIONAL: Denies body aches, fever, chills, or sweats. EYES: Denies visual changes, redness, or discharge. ENT: reports rhinorrhea, congestion,Denies sore throat, or otalgia. CARDIOVASCULAR: Denies chest pain, palpitations, or edema. RESPIRATORY: Reports cough, sob, wheezing. GASTROINTESTINAL: Denies abdominal pain, nausea, vomiting, or diarrhea. MUSCULOSKELETAL: Denies back pain, joint pain, or myalgia. NEUROLOGIC: Denies headache, numbness, tingling, or weakness. All systems reviewed & are unremarkable except as noted in HPI and below PMFSH Past Medical History Medical History B12 deficiency History of urinary tract infection 01/2022 & 01/2023 caused from Jardiance with history of ESBL E coli but most recent culture July 2023 was E coli without ESBL Hypertension Diabetes Surgical History Surgical History No pertinent past surgical history Family History Family History Mother Family history non-contributory Social History Social History Smoking status: Never smoker Alcohol intake: never Substance use: never Substance use type: does not use Do You Feel Safe in your Home?: Yes Lack of Transportation: No Lack of Food: Never True Current Housing: I Have Housing Concerned About Future Housing: No Difficulty Paying Gas/Electric Bills: No Difficulty Paying for Meds: No Currently Unemployed: No Education: Bachelor's Degree Difficulty w/ Childcare or Family Care: No Spiritual care concerns: No Comments At time of signature, I have reviewed and agree with nursing past medical, surgical, social and family history unless otherwise noted. Please see nursing chart for further information. There is no relevant family history pertinent to the presenting complaint Exam Narrative: GENERAL: Well-appearing, in no acute distress. EYES: EOMI. No redness or drainage. Conjunctivae normal. ENT: Mucous membranes pink and moist. No rhinorrhea. NECK: Normal AROM. Supple. CHEST: No respiratory distress. Expiratory Wheezing to all lowe. HEART: Regular rate and rhythm. No murmur appreciated. ABDOMEN: Soft, nontender, nondistended, normal active bowel sounds. SKIN: Warm, dry, no rash. Capillary refill normal. Normal skin turgor. NEURO: Alert and oriented x3. Gait steady. PSYCH: Normal affect. Course Course Emergency Course: Patient is aware of diagnosis, understands and agrees to treatment plan. Anticipatory guidance given. Patient agrees to follow-up as directed and is aware of reasons to seek care at the emergency department. Portions of this record may have been created with voice recognition software Level of Care: Express Care Visit Vital Signs Vital signs: Vital Signs Temperature 97 F L 05/21/24 13:26 Pulse Rate 104 H 05/21/24 13:26 Respiratory Rate 20 05/21/24 13:26 Blood Pressure 141/80 H 05/21/24 13:26 Pulse Oximetry 98 05/21/24 13:26 Oxygen Delivery Room Air 05/21/24 13:26 Temperature 97 F L 05/21/24 13:26 Pulse Rate 104 H 05/21/24 13:26 Respiratory Rate 20 05/21/24 13:26 Blood Pressure 141/80 H 05/21/24 13:26 Pulse Oximetry 98 05/21/24 13:26 Oxygen Delivery Room Air 05/21/24 13:26 MDM - URI/Sore Throat MDM Narrative Medical decision making narrative: Discussed physical exam findings. Advised supportive measures and signs/symptoms to go to the ER. Pt is appropriate for outpt treatment and f/u. Differential Diagnosis Differential diagnosis: Likely upper respiratory infection, sinusitis, viral infection, bronchitis and other ( Pneumonia) Discharge Plan Discharge Clinical Impression: Bronchitis Patient Disposition: Home, Self-Care Condition: Stable Instructions: Antibiotic Form, Acute Bronchitis (ED) Additional Instructions: Acute bronchitis can be contagious because it is usually caused by infection with a virus or bacteria. It is usually for a few days but you can be contagious for up to one week. Take medication as directed Recommend Flonase spray and Zyrtec (or Claritin/Kristina) for nasal congestion over the counter Cough syrup may cause drowsiness; avoid driving or take it at night time. Tylenol every 8 hours as needed for pain Symptomatic treatment includes: rest, fluids, and increase humidity of the air a t home. Follow up with your primary care provider as needed in 1 week Go to the ER for worsening symptoms or concerns Patient Language: Nigerien Prescriptions: New azithromycin [Zithromax Z-Goldy] 250 mg tablet See Rx Instructions .ROUTE .COMPLEX Qty: 6 0RF Rx Instructions: For 250 mg dose pack: take 500 mg today (day 1), then 250 mg for 4 days (days 2-5) methylprednisolone [Medrol (Goldy)] 4 mg tablets,dose pack See Rx Instructions .ROUTE .COMPLEX Qty: 21 0RF Rx Instructions: orally per package directions albuterol sulfate 90 mcg/actuation HFA aerosol inhaler 2 inh inhalation QID PRN (Reason: shortness of breath or wheezing) Qty: 8.5 0RF No Action levothyroxine 50 mcg tablet 50 mcg PO DAILY Follow-up/Referrals: Buffy,MD Stacey [Primary Care Provider] - Time of Disposition: 13:52
== END 2024-05-21 14:03 | disposition home or self-care (01) ==
PROVIDERS: Emergency Provider Nurse Practitioner Family; PCP Internal Medicine Geriatric Medicine
DX: J40 Bronchitis, not specified as acute or chronic (principal); I10 Essential (primary) hypertension; E11.9 Type 2 diabetes mellitus without complications
CPT/HCPCS: 99213; G0463

== ENCOUNTER 2024-06-02 11:05 | Emergency (ER) | payer MEDICARE, SELFPAY ==
[2024-06-02 11:13] VITALS: BP 128/78; PULSE 98; RESP 18; TEMP 37.1; O2SAT 98
--- NOTE | 2024-06-02 11:36 | ED.URI ---
HPI - URI/Sore Throat General Chief Complaint: Upper Respiratory Infection Stated Complaint: throat Time Seen by Provider: 06/02/24 11:25 Source: patient, RN notes reviewed and old records reviewed Mode of arrival: ambulatory Limitations: no limitations History of Present Illness HPI Narrative: Patient presents today complaining of copious postnasal drainage leading to continuous clearing of the throat and choking sensation, especially when she lays down to go to sleep at night. She has been sleeping at an angle with extra pillows at night for the past 3 days. The continuous clearing has also led to sore throat. Patient was seen here at [facility] on 05/21/2024 for cough and congestion symptoms. At that time she was prescribed azithromycin and a Medrol Dosepak which she has finished. Related Data Home Medications ?Medication ?Instructions ?Recorded ?Confirmed ?Last Taken ?Type levothyroxine 50 mcg tablet 50 mcg PO DAILY 04/23/23 05/21/24 Unknown History furosemide 20 mg tablet mg 06/02/24 Unknown History rosuvastatin 10 mg tablet mg 06/02/24 Unknown History spironolactone 50 mg tablet mg 06/02/24 Unknown History vericiguat 2.5 mg tablet (Verquvo) mg 06/02/24 Unknown History Allergies Allergy/AdvReac Type Severity Reaction Status Date / Time No Known Allergies Allergy Verified 02/29/24 11:07 Review of Systems Review of Systems: CONSTITUTIONAL: Denies body aches, fever, chills, or sweats. EYES: Denies visual changes, redness, or discharge. ENT: Denies rhinorrhea, congestion, or otalgia.+ sore throat, clearing of the throat, postnasal drip CARDIOVASCULAR: Denies chest pain, palpitations, or edema. RESPIRATORY: Denies cough or dyspnea. GASTROINTESTINAL: Denies abdominal pain, nausea, vomiting, or diarrhea. GENITOURINARY: Denies dysuria or hematuria. SKIN: Denies rash, itching, or wounds. MUSCULOSKELETAL: Denies back pain, joint pain, or myalgia. NEUROLOGIC: Denies headache, numbness, tingling, or weakness. PSYCH: Denies depression or anxiety. [facility] Past Medical History Medical History B12 deficiency History of urinary tract infection 01/2022 & 01/2023 caused from [facility] with history of ESBL E coli but most recent culture July 2023 was E coli without ESBL Hypertension Diabetes Surgical History Surgical History No pertinent past surgical history Family History Family History Mother Family history non-contributory Social History Social History Smoking status: Never smoker Alcohol intake: never Substance use: never Substance use type: does not use Do You Feel Safe in your Home?: Yes Lack of Transportation: No Lack of Food: Never True Current Housing: I Have Housing Concerned About Future Housing: No Difficulty Paying Gas/Electric Bills: No Difficulty Paying for Meds: No Currently Unemployed: No Education: Bachelor's Degree Difficulty w/ Childcare or Family Care: No Spiritual care concerns: No Comments At time of signature, I have reviewed and agree with nursing past medical, surgical, social and family history unless otherwise noted. Please see nursing chart for further information. There is no relevant family history pertinent to the presenting complaint Exam Narrative: GENERAL: Well-appearing, well-nourished, and in no acute distress. HEAD: Normocephalic, atraumatic. EYES: EOMI. No redness or drainage. Conjunctivae normal. ENT: Mucous membranes pink and moist. Nares clear. No rhinorrhea. TMs normal bilaterally. Throat with copious clear postnasal drainage noted. Uvula midline. Patient is continuously clearing the throat. Sounds of thick drainage noted. NECK: Normal AROM. Supple. No lymphadenopathy. CHEST: No respiratory distress. Clear to auscultation. HEART: Regular rate and rhythm. No murmur appreciated. EXTREMITIES: Normal range of motion. No edema. SKIN: Warm, dry, no rash. Capillary refill normal. Normal skin turgor. NEURO: No focal deficits. Alert and oriented x3. Gait steady. PSYCH: Normal affect. No signs of depression or anxiety. Course Course Level of Care: Express Care Visit Vital Signs Vital signs: Vital Signs Temperature 98.7 F 06/02/24 11:13 Pulse Rate 98 06/02/24 11:13 Respiratory Rate 18 06/02/24 11:13 Blood Pressure 128/78 06/02/24 11:13 Pulse Oximetry 98 06/02/24 11:13 Oxygen Delivery Room Air 06/02/24 11:13 Temperature 98.7 F 06/02/24 11:13 Pulse Rate 98 06/02/24 11:13 Respiratory Rate 18 06/02/24 11:13 Blood Pressure 128/78 06/02/24 11:13 Pulse Oximetry 98 06/02/24 11:13 Oxygen Delivery Room Air 06/02/24 11:13 Reviewed MDM - URI/Sore Throat MDM Narrative Medical decision making narrative: Patient's symptoms are consistent with post infectious postnasal drainage. Instructed that she needs a humidifier at night to help thin her secretions, saline nasal spray, and possible Mucinex to help break up any chest congestion. Patient is agreeable to plan. Anticipatory guidance given Differential Diagnosis Differential diagnosis: Likely upper respiratory infection, sinusitis, viral infection, bronchitis and pharyngitis Critical Care Time Critical Care Time Critical Care Time: No Discharge Plan Discharge Clinical Impression: Post-nasal drip Patient Disposition: Home, Self-Care Condition: Stable Instructions: Postnasal Drip (DC) Additional Instructions: At this time, your symptoms are not due to an active infection. You have increased postnasal drainage which is causing your coughing and sore throat. If your able, please have a humidifier running in your bedroom at night. Through the day, please blood your nose and use some saline nasal spray to help thin your secretions. Use Mucinex if you find you are having some upper chest congestion. Drink plenty of water to also help thin your secretions. Follow-up with your PCP next week if symptoms persist. Your blood pressure was elevated above 120/80 today at Urgent Care. This puts you above the threshold for follow up. Please schedule a followup visit with your personal physician as soon as possible, for further evaluation and treatment. Even blood pressure exceeding 120/80 may indicate pre-hypertension. Patient Language: Tajik Prescriptions: No Action levothyroxine 50 mcg tablet 50 mcg PO DAILY furosemide 20 mg tablet spironolactone 50 mg tablet rosuvastatin 10 mg tablet Verquvo 2.5 mg tablet Follow-up/Referrals: Buffy,MD Stacey [Primary Care Provider] - Time of Disposition: 11:41
== END 2024-06-02 11:45 | disposition home or self-care (01) ==
PROVIDERS: Emergency Provider Nurse Practitioner; PCP Internal Medicine Geriatric Medicine
DX: R09.82 Postnasal drip (principal); I10 Essential (primary) hypertension; E11.9 Type 2 diabetes mellitus without complications; Z79.899 Other long term (current) drug therapy
CPT/HCPCS: 99211; G0463